=== PATIENT | female | born 1965 | race Caucasian/White ===

== ENCOUNTER → 2019-12-03 08:50 | Outpatient (BNVA) | payer MEDICAID, SELFPAY | PROVIDERS: Family Provider Family Medicine; PCP Family Medicine; Visit Provider Nurse Practitioner Psychiatric/Mental Health | DX: F33.2 Major depressive disorder, recurrent severe without psychotic features (principal); F41.1 Generalized anxiety disorder | CPT/HCPCS: 99213 ==

== ENCOUNTER → 2020-02-25 07:26 | Outpatient (BNVA) | payer MEDICAID, SELFPAY | PROVIDERS: Family Provider Family Medicine; PCP Family Medicine; Visit Provider Nurse Practitioner Psychiatric/Mental Health | DX: F33.2 Major depressive disorder, recurrent severe without psychotic features (principal); F41.1 Generalized anxiety disorder | CPT/HCPCS: 99213 ==

== ENCOUNTER → 2020-05-24 07:41 | Outpatient (BNVA) | payer MEDICAID, SELFPAY | PROVIDERS: Family Provider Family Medicine; PCP Family Medicine; Visit Provider Nurse Practitioner Psychiatric/Mental Health | DX: F33.2 Major depressive disorder, recurrent severe without psychotic features (principal); F41.1 Generalized anxiety disorder | CPT/HCPCS: 99213 ==

== ENCOUNTER → 2020-08-24 07:49 | Outpatient (BNVA) | payer MEDICAID, SELFPAY | PROVIDERS: Family Provider Family Medicine; PCP Family Medicine; Visit Provider Nurse Practitioner Psychiatric/Mental Health | DX: F33.2 Major depressive disorder, recurrent severe without psychotic features (principal); F41.1 Generalized anxiety disorder | CPT/HCPCS: 99213 ==

== ENCOUNTER → 2020-11-22 07:59 | Outpatient (BNVA) | payer MEDICAID, SELFPAY | PROVIDERS: Family Provider Family Medicine; PCP Family Medicine; Visit Provider Nurse Practitioner Psychiatric/Mental Health | DX: F33.2 Major depressive disorder, recurrent severe without psychotic features (principal); F41.1 Generalized anxiety disorder | CPT/HCPCS: 99213 ==

== ENCOUNTER → 2021-01-03 07:45 | Outpatient (BNVA) | payer MEDICAID, SELFPAY | PROVIDERS: Family Provider Family Medicine; PCP Family Medicine; Visit Provider Nurse Practitioner Psychiatric/Mental Health | DX: F33.2 Major depressive disorder, recurrent severe without psychotic features (principal); F41.1 Generalized anxiety disorder; Z79.899 Other long term (current) drug therapy | CPT/HCPCS: 99214 ==

== ENCOUNTER → 2021-02-15 08:36 | Outpatient (BNVA) | payer MEDICAID, SELFPAY | PROVIDERS: Family Provider Family Medicine; PCP Family Medicine; Visit Provider Nurse Practitioner Psychiatric/Mental Health | DX: F33.2 Major depressive disorder, recurrent severe without psychotic features (principal); F41.1 Generalized anxiety disorder; Z79.899 Other long term (current) drug therapy | CPT/HCPCS: 99214 ==

== ENCOUNTER → 2021-03-01 08:49 | Outpatient (BNVA) | payer MEDICAID, SELFPAY | PROVIDERS: Family Provider Family Medicine; PCP Family Medicine; Visit Provider Nurse Practitioner Psychiatric/Mental Health | DX: Z79.899 Other long term (current) drug therapy (principal) | CPT/HCPCS: 80061; 83036 ==

== ENCOUNTER → 2021-05-10 07:51 | Outpatient (BNVA) | payer MEDICAID, SELFPAY | PROVIDERS: Family Provider Family Medicine; PCP Family Medicine; Visit Provider Nurse Practitioner Psychiatric/Mental Health | DX: F33.2 Major depressive disorder, recurrent severe without psychotic features (principal); F41.1 Generalized anxiety disorder; Z79.899 Other long term (current) drug therapy | CPT/HCPCS: 99214 ==

== ENCOUNTER → 2021-08-02 07:32 | Outpatient (BNVA) | payer MEDICAID, SELFPAY | PROVIDERS: Family Provider Family Medicine; PCP Family Medicine; Visit Provider Nurse Practitioner Psychiatric/Mental Health | DX: F33.2 Major depressive disorder, recurrent severe without psychotic features (principal); F41.1 Generalized anxiety disorder; Z79.899 Other long term (current) drug therapy | CPT/HCPCS: 99214 ==

== ENCOUNTER → 2021-12-06 07:34 | Outpatient (BNVA) | payer MEDICAID, SELFPAY | PROVIDERS: Family Provider Family Medicine; PCP Family Medicine; Visit Provider Nurse Practitioner Psychiatric/Mental Health | DX: F33.2 Major depressive disorder, recurrent severe without psychotic features (principal); F41.1 Generalized anxiety disorder | CPT/HCPCS: 99214 ==

== ENCOUNTER → 2022-03-09 15:07 | Outpatient (BNVA) | payer MEDICAID, SELFPAY | PROVIDERS: Family Provider Family Medicine; PCP Family Medicine; Visit Provider Nurse Practitioner Psychiatric/Mental Health | DX: F33.2 Major depressive disorder, recurrent severe without psychotic features (principal); F41.1 Generalized anxiety disorder | CPT/HCPCS: 99214 ==

== ENCOUNTER → 2022-08-29 08:44 | Outpatient (BNVA) | payer MEDICAID, SELFPAY | PROVIDERS: Family Provider Family Medicine; PCP Family Medicine; Visit Provider Nurse Practitioner Psychiatric/Mental Health | DX: Z79.899 Other long term (current) drug therapy (principal) | CPT/HCPCS: 80053; 80061; 83036 ==

== ENCOUNTER → 2023-06-29 11:01 | Outpatient (BNVA) | payer MEDICAID, SELFPAY | PROVIDERS: PCP Family Medicine; Visit Provider Nurse Practitioner Psychiatric/Mental Health | DX: Z79.899 Other long term (current) drug therapy (principal); F50.81 Binge eating disorder; F33.2 Major depressive disorder, recurrent severe without psychotic features; F41.1 Generalized anxiety disorder | CPT/HCPCS: 80053; 80061; 83036 ==

== ENCOUNTER → 2023-07-05 13:07 | Outpatient (BNVA) | payer MEDICAID, SELFPAY | PROVIDERS: PCP Family Medicine; Visit Provider Internal Medicine Cardiovascular Disease | DX: Z79.899 Other long term (current) drug therapy (principal) | CPT/HCPCS: 93005 ==

== ENCOUNTER 2023-12-12 08:02 | Outpatient (CLI) | payer OTHER, SELFPAY ==
--- NOTE | 2023-12-12 08:05 | MM_ITS ---
WS: [id number] SCREENING DIGITAL TOMOSYNTHESIS MAMMOGRAM WITH CAD HISTORY: SCREENING COMPARISON: 10/25/2009 Bilateral CC and MLO with tomosynthesis views submitted. Synthetic mammography reviewed. Computer aid ed detection analyzed. Breast composition: There are scattered areas of fibroglandular density. No suspicious masses, microc alcifications or architectural distortion. Benign bilateral calcifications. IMPRESSION: MM/[place] [id number] BI-RADS: 2-Benign FOLLOW UP: 1 Year Follow-up
== END 2023-12-12 08:03 | disposition home or self-care (01) ==
LOC: RAD 08:03
PROVIDERS: PCP Family Medicine; Visit Provider Nurse Practitioner Family
DX: Z12.31 Encounter for screening mammogram for malignant neoplasm of breast (principal); R92.323 Mammographic fibroglandular density, bilateral breasts; R92.1 Mammographic calcification found on diagnostic imaging of breast
CPT/HCPCS: 77063; 77067

== ENCOUNTER 2023-12-19 08:30 | Day surgery (SDC) | payer OTHER, SELFPAY ==
[2023-12-19 08:50] VITALS: BP 151/106; PULSE 97; RESP 18; TEMP 36.1; O2SAT 98
[2023-12-19] MEDS: sodium chloride 0.9% 1,000 ML 30 ML IV (08:50)
--- NOTE | 2023-12-19 09:01 | P.ANESASSM_ITS ---
Pre-Anesthetic Assessment Height/Weight: Height 1.55 m Weight 82.554 kg Temp Pulse Resp BP Pulse Ox O2 Del Method 97.0 F L 97 18 151/106 98 Room Air 12/19/23 08:50 12/19/23 08:50 12/19/23 08:50 12/19/23 08:50 12/19/23 08:50 12/19/23 08:50 Preop Diagnosis: Screening colon Operation Date: 12/19/23 09:30 [place] Procedures p [address] colonoscopy G0121 screen colon a risk Z12.11(Not Applicable) - Baldemar Castro DO Familial anesthetic complications: None Was Beta Rishabh taken within 24 hours: N/A Was Clonidine taken within 24 hours: N/A Last intake: Intake Last Liquid Date 12/18/23 Last Liquid Time 20:00 Last Solid Date 12/17/23 Last Solid Time 19:00 Social No alcohol and No tobacco Exam alert, oriented x 3, clear to auscultation bilaterally and regular rate & rhythm Airway Submandibular: within normal limits Cervical ROM: within normal limits Mallampati: Class II Dentition: other History/ROS No significant history except as noted Pulmonary None reported CV/HEM Hypertension None reported Hepatic None reported GI None reported Metabolic None reported Musc/skel None reported Neuropsych Anxiety and Depression Anesthetic Plan ASA status: 2 Anesthesia: Anesthesia Evaluation Risk of > 500 ml blood loss (7ml/kg in children): No Medications/Allergies Home Medications Medication Instructions Recorded Confirmed Last Taken Type melatonin 3 mg capsule 3 mg PO .QHS PRN sleep #90 caps 03/07/22 12/17/23 12/18/23 Rx lisinopril 10 mg tablet 10 mg PO DAILY 08/24/22 12/17/23 12/18/23 History aripiprazole 2 mg tablet (Abilify) 2 mg PO .evening #90 tabs 06/29/23 12/17/23 12/18/23 Rx venlafaxine 150 mg 150 mg PO .12 pm #90 caps 07/27/23 12/17/23 12/18/23 Rx capsule,extended release 24 hr (Effexor XR) venlafaxine 75 mg capsule,extended 75 mg PO .12 pm #90 caps 07/27/23 12/17/23 12/18/23 Rx release 24 hr (Effexor XR) Allergies Allergy/AdvReac Type Severity Reaction Status Date / Time metronidazole [From Flagyl] Allergy Mild hives Verified 11/27/23 12:16 Current Medications Generic Name Dose Route Start Last Admin Trade Name Yaritza PRN Reason Stop Dose Admin Sodium Chloride 1,000 mls @ 30 mls/hr 12/19/23 08:45 12/19/23 08:50 Sodium Chloride 0.9% IV 12/20/23 08:44 30 mls/hr .Q24H ABDOUL Administration PFSH Anesthesia Medical History Binge-eating disorder, severe Psychiatric care Generalized anxiety disorder Major depressive disorder, recurrent severe without psychotic features Surgical History History of bilateral tubal ligation (~1999) [facility] with Dr. Roberts Family History Mother , Age 62 Hypertension Diabetes Father , Age 52 from [place] Diabetes CAD (coronary artery disease) Social History Smoking and tobacco/nicotine status: never used tobacco/nicotine Alcohol intake: never Substance/Drug Use: never Data Anesthesia Cardiac Studies: No Data to Display
--- NOTE | 2023-12-19 09:12 | W.PM.OPSUD ---
Surgery/Procedure H&P Update DATE OF PROCEDURE: December 19, 2023 DATE H&P PERFORMED: 11/27/23 H&P UPDATE INFORMATION: I have reviewed H&P completed within last 30 days, I have examined patient prior to procedure and No changes to prior documentation PREOP DIAGNOSIS: Screening colon PLANNED PROCEDURE: Operation Date: 12/19/23 09:30 Pro[place] Procedures p 89640 colonoscopy G0121 screen colon a risk Z12.11(Not Applicable) - Baldemar Castro, DO
[2023-12-19 09:33] VITALS: BP 128/87; PULSE 88; RESP 18; TEMP 36.3; O2SAT 98
[2023-12-19 09:46] VITALS: BP 128/81; PULSE 82; RESP 16; O2SAT 96
--- NOTE | 2023-12-19 09:50 | ANE.PACU2 ---
Inpatient post-anesthesia follow up: Airway intact: Yes Vital signs: Temperature 97.3 F Pulse Rate 82 Respiratory Rate 16 Blood Pressure 128/81 Pulse Oximetry 96 Oxygen Delivery Me thod Room Air Oxygen Flow Rate Fraction of Inspir ed Oxygen Hydration adequate: Yes Nausea and vomiting: No Pain level: 1 Mental status: Baseline
== END 2023-12-19 09:55 | disposition home or self-care (01) ==
PROVIDERS: PCP Family Medicine; Visit Provider Surgery
PROC: 0DJD8ZZ Inspection of Lower Intestinal Tract, Via Natural or Artificial Opening Endoscopic (ICD-10-PCS; CPT 45378; principal; 2023-12-19 09:30)
DX: Z12.11 Encounter for screening for malignant neoplasm of colon (principal); I10 Essential (primary) hypertension
CPT/HCPCS: 45378; J2704; J7030

== ENCOUNTER → 2024-03-06 10:23 | Outpatient (BNVA) | payer OTHER, SELFPAY | PROVIDERS: PCP Family Medicine; Visit Provider Nurse Practitioner Women's Health | DX: N95.0 Postmenopausal bleeding (principal); D25.9 Leiomyoma of uterus, unspecified | CPT/HCPCS: 76830 ==

== ENCOUNTER 2024-03-10 10:18 | Outpatient (CLI) | payer OTHER, SELFPAY ==
--- NOTE | 2024-03-10 10:23 | XR_ITS ---
WS: [id number] XR knee LT 3V* [id number] REASON FOR EXAM: L KNEE PAIN FINDINGS: No fracture or focal bone lesion. Mild narrowing of the medial and lateral joint space with mild subchondral sclerosis. Patellofemoral joint space intact and relatively well preserved. No soft tissue abnormality. XR/XR knee LT 3V* [id number] IMPRESSION: Mild osteoarthritis of the left knee as above.
== END 2024-03-10 10:19 | disposition home or self-care (01) ==
LOC: RAD 10:18
PROVIDERS: PCP Family Medicine; Visit Provider Family Medicine
DX: M25.562 Pain in left knee (principal); M17.12 Unilateral primary osteoarthritis, left knee
CPT/HCPCS: 73562

== ENCOUNTER 2024-04-01 10:40 | Emergency (ER) | payer OTHER, SELFPAY ==
--- NOTE | 2024-04-01 10:45 | XRR_ITS ---
PROCEDURE INFORMATION: Exam: XR Left Knee Exam date and time: 04/01/2024 11:22 AM Age: 58 years old Clinical indication: Patient HX: PT presents with left knee pain. Patient states she has been dx with arthritis by pcp. Patient has follow up on 04/10 and has appointments with ortho in April. Patient states she cannot sleep due to pain. Patient states pain medciations given do not work. Patient ambulated to triage. Patent airway, unlabored respirations, and appropriate color. TECHNIQUE: Imaging protocol: Radiologic exam of the left knee. Views: 3 views. COMPARISON: CR XR knee LT 3V* [id number] 03/10/2024 10:37 AM FINDINGS: Bones/joints: Normal. Soft tissues: Normal. XR/XR knee LT 3V* [id number] IMPRESSION: No acute findings.
[2024-04-01 10:54] VITALS: BP 141/81; PULSE 79; RESP 16; TEMP 36.6; O2SAT 98; BMI 34.2
[2024-04-01 10:56] VITALS: BP 141/81; PULSE 79; RESP 16; O2SAT 98
--- NOTE | 2024-04-01 13:07 | ED_ITS ---
HPI - Extremity Problem General: Chief complaint: Extremity Problem,Nontraumatic Stated complaint: pain in left knee Time Seen by Provider: 04/01/24 12:24 Source: patient Mode of arrival: ambulatory Limitations: no limitations History of Present Illness: Patient presents to the ER for continued left knee pain. She denies any specific injury but has had issues with her knee for a while. 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 She has been evaluated already and sees ortho in April and is supposed to have a knee injection soon but has been trying topical rubs and a prescription of diclofenac without resolution of her pain. Pain is in the medial knee. She has not had lower leg swelling or knee redness/fever. Review of Systems General: Reports: 10 or more systems reviewed and unremarkable except in HPI and below PFSH ED PFSH: Medical History Hypertension No pertinent past medical history neghx: dm,thyroid,dvt/pe PCP: Dr. Cabrera Postmenopausal bleeding Binge-eating disorder, severe Psychiatric care Generalized anxiety disorder Major depressive disorder, recurrent severe without psychotic features Surgical History History of bilateral tubal ligation (~1999) [facility] with Dr. Roberts Family History Mother , Age 62 Hypertension Diabetes Father , Age 52 from [place] Diabetes CAD (coronary artery disease) Heart disease Denies family history of Colon cancer Ovarian cancer Prostate cancer Hyperlipidemia Breast cancer Uterine cancer Thyroid disease Stroke Physical Exam Const: COMMON NORMALS: no acute distress, patient oriented x3 and alert HENMT: COMMON NORMALS: normocephalic, atraumatic and hearing grossly normal bilaterally HEAD & SCALP: normocephalic and atraumatic Eye: COMMON NORMALS: Equal, round and reactive pupils present, EOMs intact bilaterally and conjunctivae normal CONJUNCTIVA: Yes conjunctivae normal PUPIL: Yes Equal, round and reactive pupils present Neck/C-Spine: COMMON NORMALS: full ROM and no JVD Lymph: LYMPHATIC: no lymphadenopathy noted Resp: COMMON NORMALS: normal respiratory effort, No retractions and No use of accessory muscles Cardio: COMMON NORMALS: no JVD and regular rate RATE: regular rate Extremity: NARRATIVE EXTREMITY EXAM: Full flexion and extention of the left knee. non tender to the patella, suprapatellar region, popliteal region or calf. Point tenderness to the medial tibial plateau region. Neuro: COMMON NORMALS: patient oriented x3 SENSORIUM/ORIENTATION: Yes alert Psych: COMMON NORMALS: mental status grossly normal, Normal thought process present, cooperative and normal affect THOUGHT PROCESS: Normal thought process present Skin: COMMON NORMALS: no rashes or lesions noted and turgor normal GENERAL SKIN EXAM: no rashes or lesions noted and turgor normal Course Vital Signs: Vital signs: Vital Signs Temperature 97.8 F 04/01/24 10:54 Pulse Rate 76 04/01/24 13:29 Respiratory Rate 18 04/01/24 13:29 Blood Pressure 141/81 04/01/24 10:56 Pulse Oximetry 99 04/01/24 13:29 Oxygen Delivery Me thod Room Air 04/01/24 10:56 MDM - Extremity (Nontraumatic) Medical Decision Making Patient has point tenderness on her exam consistent with Pes Anserinus. XR shows no abnormalities. We discussed this as a tendonitis/soft tissue pain vs an internal joint pain. Would still recommend following up with orthopedics for her knee and getting the injection due to reports of osteoarthritis in her knee (previously diagnosed). Will treat with antiinflammatories for her tendonitis and recommend RICE therapy. She would prefer not to have a brace as pressure on the area causes her to have pain. Differential Diagnosis Unlikely herpes zoster, gout, cellulitis, lower extremity edema or deep vein thrombosis of lower extremity Lab Data Radiology Impressions Knee X-Ray 04/01/24 10:45 IMPRESSION: No acute findings. All radiology interpretation(s) finalized by discharge Discharge Plan Discharge Patient Disposition: Home Clinical Impression: Pes anserinus tendinitis of left lower extremity Condition: Stable Prescriptions: New methylprednisolone 4 mg tablets,dose pack See Rx Instructions PO .COMPLEX Qty: 21 0RF Rx Instructions: orally per package directions tizanidine 4 mg capsule 4 mg PO Q8H PRN (Reason: muscle spasticity) Qty: 20 0RF No Action lisinopril 10 mg tablet 10 mg PO DAILY aripiprazole [Abilify] 2 mg tablet 2 mg PO .7 pm Qty: 90 2RF Rx Instructions: Take one tablet at 7 pm diclofenac sodium 75 mg tablet,delayed release (DR/EC) 75 mg PO BID melatonin 3 mg capsule 3 mg PO .QHS PRN (Reason: sleep) Qty: 90 1RF Rx Instructions: Take one tablet at bedtime as needed for sleep venlafaxine [Effexor XR] 75 mg capsule,extended release 24hr 75 mg PO .12 pm Qty: 90 2RF Rx Instructions: Take one capsule at noon with 150 mg capsule, total dose 225 mg venlafaxine [Effexor XR] 150 mg capsule,extended release 24hr 150 mg PO .12 pm Qty: 90 2RF Rx Instructions: Take one capsule at noon estradiol 0.5 mg tablet 0.5 mg PO DAILY 30 Days Qty: 30 0RF progesterone micronized [Prometrium] 100 mg capsule 100 mg PO BEDTIME Qty: 30 0RF Rx Instructions: take in addition with estradiol Discharge Orders: Discharge ED (Routine); Ordered 04/01/24 Ordered By: Rachael Lackey Referrals: Evelio Cabrera MD [Primary Care Provider] - Discharge Diet: Usual diet Discharge Activity: Increase activity as tolerated Patient Instructions: Tendinitis (ED) Activity Restrictions/Additional Instructions: After hearing the description of your pain and the location, I believe you are suffering from pes anserinus. This is a specific tendinitis of the knee which takes the medial thigh muscles and brings them together with connective tissue which attaches to the medial side of your tibia. This correlates with the point specific tenderness you have. I looked in your chart and it appears you are on diclofenac as an anti-inflammatory. I encourage you to continue taking this medication as it does work very well for knee issues. I am also adding some oral steroids as well as a muscle relaxer to help, given the type of pain you are experiencing. I still encourage you to see the integrated specialist and would encourage you to receive a cortisone shot in your knee as it does appear you suffer from an underlying knee arthritis as well. I encourage you to put ice on that medial knee for 15 to 20 minutes, every couple of hours to help with pain and swelling as well. Unfortunately, repetitive motion can often trigger worsening of the symptoms such as bending and squatting up and down regularly. For that reason would like to be couple days off work to allow you to rest. Stand Alone Forms: Work/School Release Coding Level of Care Code ED [employer] for Joao Gonzalez
[2024-04-01 13:29] VITALS: PULSE 76; RESP 18; O2SAT 99
== END 2024-04-01 13:30 | disposition home or self-care (01) ==
PROVIDERS: Emergency Provider Physician Assistant; PCP Family Medicine
DX: M76.892 Other specified enthesopathies of left lower limb, excluding foot (principal); I10 Essential (primary) hypertension; Z79.899 Other long term (current) drug therapy
CPT/HCPCS: 73562; 99283

== ENCOUNTER → 2024-04-08 11:45 | Outpatient (BNVA) | payer OTHER, SELFPAY | PROVIDERS: PCP Family Medicine; Visit Provider Nurse Practitioner Women's Health | DX: N95.0 Postmenopausal bleeding (principal) | CPT/HCPCS: 88305 ==

== ENCOUNTER → 2024-05-01 09:10 | Outpatient (BNVA) | payer OTHER, SELFPAY | PROVIDERS: PCP Family Medicine; Referring Provider Family Medicine; Visit Provider Student in an Organized Health Care Education/Training Program | DX: M25.562 Pain in left knee (principal); M17.12 Unilateral primary osteoarthritis, left knee | CPT/HCPCS: 73560; 73565 ==

== ENCOUNTER 2024-05-01 10:57 | Outpatient (CLI) | payer OTHER, SELFPAY | END 2024-05-01 10:58 | disposition home or self-care (01) | LOC: SPT 10:58 | PROVIDERS: PCP Family Medicine; Visit Provider Student in an Organized Health Care Education/Training Program | DX: Z46.89 Encounter for fitting and adjustment of other specified devices (principal); M17.12 Unilateral primary osteoarthritis, left knee | CPT/HCPCS: 97760; L1851 ==

== ENCOUNTER 2024-05-12 15:09 | Emergency (ER) | payer OTHER, SELFPAY ==
[2024-05-12 15:51] LABS: Basophils # 0.1 10^3/uL (0.0-0.1); Basophils % 0.6 %; Eosinophils # 0.1 10^3/uL (0.0-0.8); Eosinophils % 0.8 %; Hematocrit 41.6 % (36-47); Lymphocytes # 3.3 10^3/uL (0.8-4.8); Lymphocytes % 27.5 %; Mean Corpuscular HGB Conc 32.5 g/dL (30-55); Mean Corpuscular Hemoglobin 30.5 pg (27-33); Mean Corpuscular Volume 94.1 fl (85-98); Mean Platelet Volume 10.1 fL (7.4-10.4); Monocytes # 0.6 10^3/uL (0.2-0.9); Monocytes % 5.2 %; Neutrophils % 65.5 %; Nucleated Red Blood Cells % 0 %; Platelet Count 278 10^3/cmm (157-399); Red Blood Count 4.42 10^6/uL (3.85-5.65); Red Cell Distribution Width 12.5 % (12.1-15.1); White Blood Count 11.91 10^3/uL (3.29-11.43)
[2024-05-12 15:52] VITALS: BP 101/69; PULSE 83; RESP 16; TEMP 36.7; O2SAT 99
[2024-05-12 16:07] LABS: Alanine Aminotransferase 16 U/L (0-33); Albumin Level 4.4 g/dL (3.5-5.2); Alkaline Phosphatase 82 U/L (35-105); Aspartate Amino Transferase 16 U/L (0-32); Blood Urea Nitrogen 18 mg/dL (6-20); Calcium 9.1 mg/dL (8.5-10.5); Carbon Dioxide 25 mmol/L (22-29); Chloride 101 mmol/L (98-107); Creatinine Clr Calc Pharmacy 72.2479; Globulin 2.6 g/dL (1.3-4.6); Glomerular Filtration Rate 73.7 mL/min (90-130); Glucose 93 mg/dL (65-115); Osmolality Calculated 286 mOsm/kg (285-295); Sodium 137 mmol/L (136-145); Total Bilirubin 0.2 mg/dL (0.15-1.2)
[2024-05-12 16:21] LABS: Anion Gap 15.1 (5-19); Potassium 4.1 mmol/L (3.5-5.1)
[2024-05-12 16:49] LABS: Add Urine Microscopic? YES; Bilirubin Urine Neg (Negative); Blood Urine 3+ (Negative); Glucose Urine UA Norm (Normal); Ketones Urine 1+ (Negative); Leukocyte Esterase Urine Negative (Negative); Nitrate Urine Negative (Negative); Protein Urine Neg (Negative); Specific Gravity, Urine 1.015 (1.005-1.030); Urine Appearance Slightly Cloudy (CLEAR); Urine Color Yellow (Yellow); Urobilinogen Urine Norm (Negative); pH Urine 8 (5-7)
[2024-05-12 16:50] LABS: Add Urine Culture? Yes; Bacteria Urine TRACE /hpf; RBC Urine TOO NUMEROUS TO CNT /hpf (0-2); Squamous Epithelial Cell Urine 0-4 /hpf (0-5)
--- NOTE | 2024-05-12 18:18 | W.ED.FEMALGU ---
HPI - Female Genitourinary General: Chief complaint: Urogenital-Female Stated complaint: blood in urine, abd pain Time Seen by Provider: 05/12/24 17:57 History of Present Illness: 58-year-old female who presents emergency room with vaginal bleeding. She is recently followed up in gynecology clinic and had an ultrasound that showed a thickened endometrium. She started having some bleeding yesterday and today and was under the understanding that she should go to the emergency room if she started bleeding. Bleeding has not been particularly heavy. She had no pain. No dizziness. No lightheadedness. No shortness of breath. No abdominal pain. Review of Systems Narrative: Constitutional symptoms: Negative except as documented in HPI. Skin symptoms: Negative except as documented in HPI. Eye symptoms: Negative except as documented in HPI. ENMT symptoms: Negative except as documented in HPI. Respiratory symptoms: Negative except as documented in HPI. Cardiovascular symptoms: Negative except as documented in HPI. Gastrointestinal symptoms: Negative except as documented in HPI. Genitourinary symptoms: Negative except as documented in HPI. Musculoskeletal symptoms: Negative except as documented in HPI. Neurologic symptoms: Negative except as documented in HPI. Psychiatric symptoms: Negative except as documented in HPI. Endocrine symptoms: Negative except as documented in HPI. PFSH ED PFSH: Medical History Hypertension No pertinent past medical history neghx: dm,thyroid,dvt/pe PCP: Dr. Cabrera Postmenopausal bleeding (~2019) Failed to follow-up for evaluation Binge-eating disorder, severe Psychiatric care Generalized anxiety disorder Major depressive disorder, recurrent severe without psychotic features Surgical History History of bilateral tubal ligation (~1999) [facility] with Dr. Roberts Family History Mother , Age 62 Hypertension Diabetes Father , Age 52 from [place] Diabetes CAD (coronary artery disease) Heart disease Denies family history of Colon cancer Ovarian cancer Prostate cancer Hyperlipidemia Breast cancer Uterine cancer Thyroid disease Stroke Social History (Updated 05/01/24 @ 09:19 by Hollie Delgado LPN) Smoking and tobacco/nicotine status: never used tobacco/nicotine Second hand smoke exposure: No Alcohol intake: never Physical Exam Narrative: EXAM NARRATIVE: General: Alert, no acute distress. Skin: warm and dry Head: Normocephalic Neck: Trachea midline Eye: Extraocular movements are intact. Ears, nose, mouth and throat: Oral mucosa moist Respiratory: Respirations are non-labored Musculoskeletal: Normal ROM Neurological: Alert and oriented, No focal neurological deficit observed. Psychiatric: Cooperative, appropriate mood & affect. Course Vital Signs: Vital signs: Vital Signs Temperature 98.1 F 05/12/24 15:52 Pulse Rate 83 05/12/24 15:52 Respiratory Rate 16 05/12/24 15:52 Blood Pressure 101/69 05/12/24 15:52 Pulse Oximetry 99 05/12/24 15:52 Oxygen Delivery Me thod Room Air 05/12/24 15:52 MDM - Female Medical Decision Making Medical decision making: Differential diagnosis including but not limited to and based on the above HPI, review of systems and physical exam: Basic lab work to rule out anemia etc. Orders placed to evaluate differential diagnosis based on the above differential, HPI and physical exam Lab Review: Laboratory results were reviewed and interpreted by myself the emergency room physician. Lab work is fairly unremarkable. Mild leukocytosis with a white count of 11.9. Hemoglobin is 13.5. No renal failure. There is blood in her urine but she is having vaginal bleeding so this is expected. No white cells in her urine. No signs of infection. I reviewed the patient's medical record. Consultation: I spoke with ANA Blanco. Apparently there was a misunderstanding on whether she should have gone to the emergency room. She was aware that patient had called but did not get the message until later this afternoon and so clinic likely had not yet gotten back in touch with the patient. She recommends stopping hormone therapy and clinic will call the patient. Assessment and plan: Abnormal uterine bleeding - Discharged home - Discussed plan with patient. Answered any questions. - Evaluation and treatment of this problem were appropriate in the emergency setting. Lab Data 05/12/24 15:42 05/12/24 15:42 Laboratory Results WBC 11.91 10^3/uL (3.29-11.43) H 05/12/24 15:42 RBC 4.42 10^6/uL (3.85-5.65) 05/12/24 15:42 Hgb 13.50 g/dL (11.27-16.99) 05/12/24 15:42 Hct 41.6 % (36-47) 05/12/24 15:42 MCV 94.1 fl (85-98) 05/12/24 15:42 MCH 30.5 pg (27-33) 05/12/24 15:42 MCHC 32.5 g/dL (30-55) 05/12/24 15:42 RDW 12.5 % (12.1-15.1) 05/12/24 15:42 Plt Count 278 10^3/cmm (157-399) 05/12/24 15:42 MPV 10.1 fL (7.4-10.4) 05/12/24 15:42 Neut % (Auto) 65.5 % 05/12/24 15:42 Lymph % (Auto) 27.5 % 05/12/24 15:42 Crawford % (Auto) 5.2 % 05/12/24 15:42 Eos % (Auto) 0.8 % 05/12/24 15:42 Baso % (Auto) 0.6 % 05/12/24 15:42 Neut # (Auto) 7.80 10^3/uL (1.8-7.7) H 05/12/24 15:42 Lymph # (Auto) 3.3 10^3/uL (0.8-4.8) 05/12/24 15:42 Crawford # (Auto) 0.6 10^3/uL (0.2-0.9) 05/12/24 15:42 Eos # (Auto) 0.1 10^3/uL (0.0-0.8) 05/12/24 15:42 Baso # (Auto) 0.1 10^3/uL (0.0-0.1) 05/12/24 15:42 Nucleated RBC % (auto) 0 % 05/12/24 15:42 Nucleated RBCs # 0.0 /100WBC 05/12/24 15:42 Sodium 137 mmol/L (136-145) 05/12/24 15:42 Potassium 4.1 mmol/L (3.5-5.1) 05/12/24 15:42 Chloride 101 mmol/L (98-107) 05/12/24 15:42 Carbon Dioxide 25 mmol/L (22-29) 05/12/24 15:42 Anion Gap 15.1 (5-19) 05/12/24 15:42 BUN 18 mg/dL (6-20) 05/12/24 15:42 Creatinine 0.8 mg/dL (0.5-0.9) 05/12/24 15:42 GFR Calculation 73.7 mL/min (90-130) L 05/12/24 15:42 Glucose 93 mg/dL (65-115) 05/12/24 15:42 Calculated Osmolality 286 mOsm/kg (285-295) 05/12/24 15:42 Calcium 9.1 mg/dL (8.5-10.5) 05/12/24 15:42 Total Bilirubin 0.2 mg/dL (0.15-1.2) 05/12/24 15:42 AST 16 U/L (0-32) 05/12/24 15:42 ALT 16 U/L (0-33) 05/12/24 15:42 Alkaline Phosphatase 82 U/L (35-105) 05/12/24 15:42 Total Protein 7.0 g/dL (6.6-8.7) 05/12/24 15:42 Albumin 4.4 g/dL (3.5-5.2) 05/12/24 15:42 Globulin 2.6 g/dL (1.3-4.6) 05/12/24 15:42 Urine Color Yellow (Yellow) 05/12/24 14:04 Urine Appearance Slightly cloudy (CLEAR) 05/12/24 14:04 Urine pH 8 (5-7) H 05/12/24 14:04 Ur Specific [place] 1.015 (1.005-1.030) 05/12/24 14:04 Urine Protein Neg (Negative) 05/12/24 14:04 Urine Glucose (UA) Norm (Normal) 05/12/24 14:04 Urine Ketones 1+ (Negative) H 05/12/24 14:04 Urine Blood 3+ (Negative) H 05/12/24 14:04 Urine Nitrate Negative (Negative) 05/12/24 14:04 Urine Bilirubin Neg (Negative) 05/12/24 14:04 Urine Urobilinogen Norm mg/dL (Negative) 05/12/24 14:04 Ur Leukocyte Esterase Negative (Negative) 05/12/24 14:04 Urine RBC Too numerous to cnt /hpf (0-2) H 05/12/24 14:04 Urine WBC None /hpf (0-5) 05/12/24 14:04 Ur Squamous Epith Cells 0-4 /hpf (0-5) H 05/12/24 14:04 Amorphous Sediment Not Reportable 05/12/24 14:04 Urine Bacteria Trace /hpf (NONE) 05/12/24 14:04 No radiology studies performed this visit Discharge Plan Discharge Patient Disposition: Home Clinical Impression: Abnormal vaginal bleeding Condition: Stable Prescriptions: No Action lisinopril 10 mg tablet 10 mg PO DAILY aripiprazole [Abilify] 2 mg tablet 2 mg PO .7 pm Qty: 90 2RF Rx Instructions: Take one tablet at 7 pm (DME) left knee human services 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 brace See Rx Instructions .Route .MEDSUPPLY Qty: 1 0RF Rx Instructions: As directed diclofenac sodium 75 mg tablet,delayed release (DR/EC) 75 mg PO BID estradiol 0.5 mg tablet 0.5 mg PO DAILY Qty: 90 3RF Rx Instructions: take in conjunction with prometrium progesterone micronized [Prometrium] 100 mg capsule 100 mg PO BEDTIME Qty: 90 3RF Rx Instructions: take in addition with estradiol melatonin 3 mg capsule 3 mg PO .QHS PRN (Reason: sleep) Qty: 90 1RF Rx Instructions: Take one tablet at bedtime as needed for sleep venlafaxine [Effexor XR] 75 mg capsule,extended release 24hr 75 mg PO .12 pm Qty: 90 2RF Rx Instructions: Take one capsule at noon with 150 mg capsule, total dose 225 mg venlafaxine [Effexor XR] 150 mg capsule,extended release 24hr 150 mg PO .12 pm Qty: 90 2RF Rx Instructions: Take one capsule at noon tizanidine 4 mg capsule 4 mg PO Q8H PRN (Reason: muscle spasticity) Qty: 20 0RF Discharge Orders: Discharge ED (Routine); Ordered 05/12/24 Ordered By: Ghada Diaz Referrals: Caroline Santamaria DO [Primary Care Provider] - Discharge Diet: Usual diet Discharge Activity: Resume usual activity Patient Instructions: Abnormal (Dysfunctional) Uterine Bleeding (ED) Activity Restrictions/Additional Instructions: Stop taking the hormone therapy that you are prescribed for now. Your complaint evaluation officer will be in touch with you in the next couple of days for referral to a gynecological surgeon. Thank you for choosing [facility] for your healthcare needs today. Please realize this is an emergency room and that we are providing you with a medical screening exam and this may not be complete and all inclusive of all the testing and or work up that you may need to determine your ailment or severity of your illness. You have been screened and evaluated and felt safe for discharge. Health conditions do change or evolve sometimes and as such it is important that you follow up with your Primary Doctor to be re checked, 3-5 days is a general good time frame for follow up. You are always welcome to return to the ED for re assessment if your symptoms are worsening or you have new concerns Coding Level of Care Code ED Back Order Clerk for Joao Gonzalez
== END 2024-05-12 18:57 | disposition home or self-care (01) ==
PROVIDERS: Physician Assistant; Emergency Provider Emergency Medicine; PCP Family Medicine
DX: N93.9 Abnormal uterine and vaginal bleeding, unspecified (principal); I10 Essential (primary) hypertension
CPT/HCPCS: 36415; 80053; 81001; 85025; 87086; 99283

== ENCOUNTER → 2024-06-18 08:30 | Outpatient (BNVA) | payer OTHER, SELFPAY | PROVIDERS: PCP Family Medicine; Visit Provider Nurse Practitioner Psychiatric/Mental Health | DX: Z79.899 Other long term (current) drug therapy (principal) | CPT/HCPCS: 80053; 80061; 83036 ==

== ENCOUNTER → 2024-08-11 15:17 | Outpatient (BNVA) | payer OTHER, SELFPAY | PROVIDERS: PCP Family Medicine; Visit Provider Nurse Practitioner Women's Health | DX: N95.0 Postmenopausal bleeding (principal); D25.1 Intramural leiomyoma of uterus; R93.89 Abnormal findings on diagnostic imaging of other specified body structures | CPT/HCPCS: 76830 ==

== ENCOUNTER → 2024-09-02 08:21 | Outpatient (BNVA) | payer OTHER, SELFPAY | PROVIDERS: PCP Family Medicine; Visit Provider Obstetrics & Gynecology | DX: N95.0 Postmenopausal bleeding (principal); R93.89 Abnormal findings on diagnostic imaging of other specified body structures | CPT/HCPCS: 88305 ==

== ENCOUNTER 2024-12-01 11:20 | Day surgery (SDC) | payer OTHER, SELFPAY ==
[2024-11-24 10:56] LABS: Basophils # 0.1 10^3/uL (0.0-0.1); Basophils % 0.7 %; Eosinophils # 0.2 10^3/uL (0.0-0.8); Eosinophils % 1.6 %; Hematocrit 44.5 % (36-47); Lymphocytes # 2.5 10^3/uL (0.8-4.8); Lymphocytes % 25.1 %; Mean Corpuscular HGB Conc 32.6 g/dL (30-55); Mean Corpuscular Hemoglobin 29.9 pg (27-33); Mean Corpuscular Volume 91.8 fl (85-98); Monocytes # 0.5 10^3/uL (0.2-0.9); Monocytes % 5.1 %; Neutrophils % 67.2 %; Nucleated Red Blood Cells % 0 %; Platelet Count 294 10^3/cmm (157-399); Red Blood Count 4.85 10^6/uL (3.85-5.65); Red Cell Distribution Width 12.5 % (12.1-15.1); White Blood Count 9.82 10^3/uL (3.29-11.43)
[2024-11-24 10:58] LABS: Bilirubin Urine Negative (Negative); Blood Urine Negative (Negative); Glucose Urine UA Negative (Normal); Ketones Urine Negative (Negative); Leukocyte Esterase Urine Negative (Negative); Nitrate Urine Negative (Negative); Protein Urine Negative (Negative); Specific Gravity, Urine 1.016 (1.005-1.030); Urine Appearance Clear (CLEAR); Urine Color Yellow (Yellow); Urobilinogen Urine 0.2 mg/dL (Negative); pH Urine 5.5 (5-7)
[2024-11-24 11:03] LABS: Add Urine Microscopic? YES; Bacteria Urine 1+ /hpf; Hyaline Casts Urine 0-4 /lpf; RBC Urine 0-2 /hpf (0-2); WBC Urine 0-5 /hpf (0-5)
[2024-11-24 11:15] LABS: Alanine Aminotransferase 24 U/L (0-33); Albumin Level 4.6 g/dL (3.5-5.2); Alkaline Phosphatase 96 U/L (35-105); Anion Gap 15.4 (5-19); Aspartate Amino Transferase 26 U/L (0-32); Blood Urea Nitrogen 10 mg/dL (6-20); Calcium 9.7 mg/dL (8.5-10.5); Carbon Dioxide 25 mmol/L (22-29); Chloride 103 mmol/L (98-107); Globulin 3.3 g/dL (1.3-4.6); Glomerular Filtration Rate 126.3 mL/min (90-130); Glucose 151 mg/dL (65-115); Osmolality Calculated 290 mOsm/kg (285-295); Potassium 4.4 mmol/L (3.5-5.1); Sodium 139 mmol/L (136-145); Total Bilirubin 0.2 mg/dL (0.15-1.2); Total Protein 7.9 g/dL (6.6-8.7)
--- NOTE | 2024-11-24 11:47 | ANES.PREANE2 ---
Pre-Anesthetic Assessment Height/Weight: Height 5 ft 1 in Preop Diagnosis: postmenopausal bleeding Operation Date: 12/01/24 13:25 Proposed Procedures p Hysteroscopy w/ Myosure 02832, 96179, N95.0(Not Applicable) - Timothy Johnson MD s Dilation And Curettage (D&C)(Not Applicable) - Timothy Johnson MD Was Beta Rishabh taken within 24 hours: N/A Was Clonidine taken within 24 hours: N/A Social No alcohol and No tobacco Exam alert, oriented x 3, clear to auscultation bilaterally and regular rate & rhythm Airway Submandibular: within normal limits Cervical ROM: within normal limits Mallampati: Class II Anesthetic Plan ASA status: 2 Anesthesia: General Other: No prior issues with anesthesia Plan to be n.p.o. at midnight prior to surgery History of hypertension on lisinopril Denies any pulmonary issues Labs reviewed 11/24/2024 and acceptable for procedure METs greater than 4 Plan for general anesthesia Medications/Allergies Home Medications Medication Instructions Recorded Confirmed Last Taken Type left knee mine geologist brace #1 ea 05/01/24 11/24/24 Unknown Rx venlafaxine 150 mg 150 mg PO .12 pm #90 caps 09/16/24 11/24/24 11/24/24 Rx capsule,extended release 24 hr (Effexor XR) venlafaxine 75 mg capsule,extended 75 mg PO .12 pm #90 caps 09/16/24 11/24/24 11/24/24 Rx release 24 hr (Effexor XR) lisinopril 40 mg tablet 40 mg PO DAILY 10/24/24 11/24/24 11/24/24 History Allergies Allergy/AdvReac Type Severity Reaction Status Date / Time metronidazole [From Flagyl] Allergy Mild hives Verified 11/24/24 08:45 [facility] Anesthesia Medical History Postmenopausal bleeding (~2019) Failed to follow-up for evaluation Hypertension No pertinent past medical history neghx: dm,thyroid,dvt/pe PCP: Dr. Cabrera Binge-eating disorder, severe Psychiatric care Generalized anxiety disorder Major depressive disorder, recurrent severe without psychotic features Surgical History History of bilateral tubal ligation (~1999) [facility] with Dr. Roberts Family History Mother , Age 62 Hypertension Diabetes Father , Age 52 from [place] Diabetes CAD (coronary artery disease) Heart disease Denies family history of Colon cancer Ovarian cancer Prostate cancer Hyperlipidemia Breast cancer Uterine cancer Thyroid disease Stroke Social History Smoking and tobacco/nicotine status: never used tobacco/nicotine Second hand smoke exposure: No Alcohol intake: never Data Anesthesia 11/24/24 10:45 11/24/24 10:45 Short CBC 11/24/24 Range/Units 10:45 WBC 9.82 (3.29-11.43) 10^3/uL Hgb 14.50 (11.27-16.99) g/dL Hct 44.5 (36-47) % MCV 91.8 (85-98) fl Plt Count 294 (157-399) 10^3/cmm Neut % (Auto) 67.2 % Neut # (Auto) 6.60 (1.8-7.7) 10^3/uL BMP 11/24/24 10:45 Sodium 139 Potassium 4.4 Chloride 103 Carbon Dioxide 25 BUN 10 Creatinine 0.5 Glucose 151 H Calcium 9.7 Liver Function 11/24/24 Range/Units 10:45 Total Bilirubin 0.2 (0.15-1.2) mg/dL AST 26 (0-32) U/L ALT 24 (0-33) U/L Alkaline Phosphatase 96 (35-105) U/L Albumin 4.6 (3.5-5.2) g/dL Urine 11/24/24 Range/Units 10:45 Urine Color Yellow (Yellow) Urine Appearance Clear (CLEAR) Urine pH 5.5 (5-7) Ur Specific [place] 1.016 (1.005-1.030) Urine Protein Negative (Negative) Urine Glucose (UA) Negative (Normal) Urine Ketones Negative (Negative) Urine Nitrate Negative (Negative) Urine Bilirubin Negative (Negative) Ur Leukocyte Esterase Negative (Negative) Urine RBC 0-2 (0-2) /hpf Urine WBC 0-5 (0-5) /hpf Cardiac Studies: No Data to Display
[2024-12-01] VITALS (11 sets, daily range): BP systolic 133–162; BP diastolic 85–124; PULSE 74–97; RESP 16–18; TEMP 36.1–36.6; O2SAT 96–100; BMI 34.0
[2024-12-01] MEDS: sodium chloride 0.9% 1,000 ML 30 ML IV (11:56)
[2024-12-01] MEDS: scopolamine 1 mg PATCH 1 PATCH TRANSDERMA (11:59)
[2024-12-01] MEDS: ceFAZolin 2,000 mg SDV 2000 MG IVP (12:22)
--- NOTE | 2024-12-01 12:40 | W.PM.OPSUD ---
Surgery/Procedure H&P Update DATE OF PROCEDURE: December 01, 2024 DATE H&P PERFORMED: 11/24/24 H&P UPDATE INFORMATION: I have reviewed H&P completed within last 30 days, I have examined patient prior to procedure and No changes to prior documentation PREOP DIAGNOSIS: postmenopausal bleeding PLANNED PROCEDURE: Operation Date: 12/01/24 13:15 Proposed Procedures p Hysteroscopy w/ Myosure 25735, 45097, N95.0(Not Applicable) - Timothy Johnson MD s Dilation And Curettage (D&C)(Not Applicable) - Timothy Johnson MD
--- NOTE | 2024-12-01 13:30 | P.ANESUD_ITS ---
Pre-Anesthetic Update Pre-Anesthetic Assessment: Date of Surgery/Procedure: 12/01/24 Preop Kelly gnosis: postmenopausal bleeding Proposed Procedure: Operation Date: 12/01/24 13:15 Proposed Procedures p Hysteroscopy w/ Myosure 75514, 57998, N95.0(Not Applicable) - Timothy Johnson MD s Dilation And Curettage (D&C)(Not Applicable) - Timothy Johnson MD Changes from Pre-Anesthetic Assessment: No changes since patient was last seen in the preoperative clinic. Plan for general anesthesia Last Intake: Intake Last Liquid Date 11/30/24 Last Liquid Time 18:00 Last Solid Date 11/30/24 Last Solid Time 18:00 Labs Last 48hrs: Blood Bank 12/01/24 11:50 Blood Type O Positive Rho(D) Type Rh positive Antibody Screen Negative Vitals: Temperature 97.6 F 12/01/24 11:47 Temperature Source Temporal Artery S can 12/01/24 11:47 Pulse Rate 74 12/01/24 11:47 Respiratory Rate 16 12/01/24 11:47 Blood Pressure 148/107 12/01/24 12:04 Blood Pressure Betzaida n 120 12/01/24 12:04 Pulse Oximetry 98 12/01/24 11:47 Oxygen Delivery Me thod Room Air 12/01/24 11:47 Cardiac Studies: No Data to Display
[2024-12-01] MEDS: lidocaine-epi 2% PF 1:200,000 20 mL SDV 10 ML XX (14:09)
--- NOTE | 2024-12-01 14:12 | PM.OP ---
Operative Report Date of procedure: December 01, 2024 Pre-op diagnosis: Postmenopausal bleed Post-op diagnosis: same Post-op diagnosis: Endometrial polyp Post-op findings: Endometrial polyp Procedure done: Hysteroscopy with dilation and curettage via MyoSure Polypectomy Specimens removed/disposition: Endometrial polyp Surgeon: Timothy Johnson MD Estimated blood loss (mL): 5 IV fluids (mL): 800 Complications: None Procedure: After informed consent, the risks included but were not limited to bleeding, infection, injury to internal organs. The patient was counseled on a possible laparotomy and on the potential need for hysterectomy. The patient expressed understanding of the risks involved, all questions were answered, and the patient consented to the procedure. The patient was taken to the operating room where general anesthesia was administered. She was placed in the dorsal lithotomy position and prepped and draped in sterile fashion. A time out procedure was performed. The patient was examined under anesthesia and found to have a normal uterus with normal adnexa. A sterile weight speculum was placed in the vagina. The uterus was then gently sounded to 8 cm, and the cervix was dilated. The 0 degrees MyoSure hysteroscope was advanced gently to the uterine fundus while visualizing the monitor. Survey of the uterine cavity showed: Endometrial polyp on the left lateral wall, the fundus shows atrophic endometrium; left ostium was visualized, and lateral wall with atrophic endometrium; right ostium visualized, and lateral wall with atrophic in the mid; anterior and posterior choi are with atrophic endometrium; endocervical canal is normal. The MyoSure device was advanced and the direct visualization the endometrial polyp was morcellated without complication. At the end of morcellation the fluid deficit was 104 mL and was estimated at approximately 70 mL were on the floor. There was minimal bleeding noted and the tenaculum removed with goad hemostasis noted. The patient tolerated the procedure well. The patient was taken to the recovery area in stable condition.
--- NOTE | 2024-12-01 15:30 | ANE.PACU2 ---
Inpatient post-anesthesia follow up: Airway intact: Yes Vital signs: Temperature 98 F Pulse Rate 74 Respiratory Rate 17 Blood Pressure 133/87 Pulse Oximetry 100 Oxygen Delivery Me thod Room Air Oxygen Flow Rate Fraction of Inspir ed Oxygen Hydration adequate: Yes Nausea and vomiting: No Pain level: 1 Mental status: Baseline
== END 2024-12-01 15:30 | disposition home or self-care (01) ==
PROVIDERS: PCP Family Medicine; Visit Provider Obstetrics & Gynecology
PROC: 0UDB8ZZ Extraction of Endometrium, Via Natural or Artificial Opening Endoscopic (ICD-10-PCS; CPT 58558; principal; 2024-12-01 13:05)
PROC: (CPT 58120; 2024-12-01 13:05)
DX: N95.0 Postmenopausal bleeding (principal); N84.0 Polyp of corpus uteri; I10 Essential (primary) hypertension
CPT/HCPCS: 58558; 80053; 81001; 85025; 86850; 86900; 88305; J0690; J1100; J1200; J2250; J2405; J2704; J3010; J7030

== ENCOUNTER 2024-12-14 08:09 | Emergency (ER) | payer OTHER, SELFPAY ==
[2024-12-14 08:38] LABS: Basophils % 0.5 %; Eosinophils # 0.1 10^3/uL (0.0-0.8); Eosinophils % 1.4 %; Lymphocytes # 2.3 10^3/uL (0.8-4.8); Lymphocytes % 25.9 %; Mean Corpuscular HGB Conc 32.6 g/dL (30-55); Mean Corpuscular Volume 92.1 fl (85-98); Mean Platelet Volume 9.8 fL (7.4-10.4); Monocytes # 0.6 10^3/uL (0.2-0.9); Monocytes % 7.2 %; Neutrophils # 5.74 10^3/uL (1.8-7.7); Neutrophils % 64.5 %; Nucleated Red Blood Cells % 0 %; Platelet Count 286 10^3/cmm (157-399); Red Blood Count 4.56 10^6/uL (3.85-5.65); Red Cell Distribution Width 12.5 % (12.1-15.1); White Blood Count 8.88 10^3/uL (3.29-11.43)
[2024-12-14 08:52] VITALS: BP 117/77; PULSE 86; RESP 18; TEMP 36.7; O2SAT 99; BMI 34.0
[2024-12-14 09:00] LABS: Alanine Aminotransferase 47 U/L (0-33); Albumin Level 3.8 g/dL (3.5-5.2); Alkaline Phosphatase 88 U/L (35-105); Anion Gap 17.3 (5-19); Aspartate Amino Transferase 29 U/L (0-32); Blood Urea Nitrogen 8 mg/dL (6-20); Calcium 8.4 mg/dL (8.5-10.5); Carbon Dioxide 20 mmol/L (22-29); Chloride 103 mmol/L (98-107); Creatinine Clr Calc Pharmacy 83.7932; Globulin 2.6 g/dL (1.3-4.6); Glomerular Filtration Rate 85.6 mL/min (90-130); Glucose 100 mg/dL (65-115); Lipase 31 U/L (13-60); Osmolality Calculated 282 mOsm/kg (285-295); Potassium 3.3 mmol/L (3.5-5.1); Sodium 137 mmol/L (136-145); Total Bilirubin 0.2 mg/dL (0.15-1.2); Total Protein 6.4 g/dL (6.6-8.7)
--- NOTE | 2024-12-14 10:12 | ED_ITS ---
HPI - Nausea/Vomiting/Diarrhea 2 General: Chief complaint: Nausea/Vomiting/Diarrhea Stated complaint: diarrhea Time Seen by Provider: 12/14/24 10:03 Source: patient Mode of arrival: ambulatory Limitations: no limitations History of Present Illness: 59-year-old female who states that she h as been having nausea vomiting diarrhea that is been going on for the last 7 days. States she had some cramping the first 2 days that is improved she denies any fever states her stools have been dark but not bloody. She denies any worsening improving factors. She has had sick contacts Associated nausea: Yes Associated symtoms: Reports nausea; Denies chest pain, dysuria or headache(s) Related Data Home Medications Medication Instructions Recorded Confirmed lisinopril 40 mg tablet 40 mg PO DAILY 10/24/24 12/01/24 Previous Rx's Medication Instructions Recorded left knee case finisher brace #1 ea 05/01/24 venlafaxine 150 mg 150 mg PO .12 pm #90 caps 09/16/24 capsule,extended release 24 hr (Effexor XR) venlafaxine 75 mg capsule,extended 75 mg PO .12 pm #90 caps 09/16/24 release 24 hr (Effexor XR) acetaminophen 325 mg capsule 325 mg PO Q4H PRN fever or pain 12/01/24 #60 caps ibuprofen 800 mg tablet 800 mg PO TID PRN pain #60 tabs 12/01/24 ondansetron 4 mg disintegrating 4 mg PO Q6H PRN nausea and 12/14/24 tablet vomiting #14 tabs Allergies Allergy/AdvReac Type Severity Reaction Status Date / Time metronidazole [From Flagyl] Allergy Mild hives Verified 12/14/24 08:59 Review of Systems 2 Const: Denies: fever(s), chills, body aches or change in appetite ENMT: Denies: throat pain or dental pain Card: Denies: chest pain Resp: Denies: dyspnea GI: Reports: nausea, vomiting and diarrhea; Denies: abdominal pain : Denies: dysuria Musc: Denies: neck pain or back pain Skin/Breast: Denies: rash Neuro: Denies: headache(s) PFSH ED 2 PFSH: Medical History Postmenopausal bleeding (~2019) Failed to follow-up for evaluation Hypertension No pertinent past medical history neghx: dm,thyroid,dvt/pe PCP: Dr. Cabrera Binge-eating disorder, severe Psychiatric care Generalized anxiety disorder Major depressive disorder, recurrent severe without psychotic features Surgical History History of bilateral tubal ligation (~1999) [facility] with Dr. Roberts Family History Mother , Age 62 Hypertension Diabetes Father , Age 52 from [place] Diabetes CAD (coronary artery disease) Heart disease Denies family history of Colon cancer Ovarian cancer Prostate cancer Hyperlipidemia Breast cancer Uterine cancer Thyroid disease Stroke Social History Smoking and tobacco/nicotine status: never used tobacco/nicotine Second hand smoke exposure: No Alcohol intake: never Physical Exam 2 Const: COMMON NORMALS: no acute distress, patient oriented x3 and healthy appearing HENMT: COMMON NORMALS: normocephalic and atraumatic HEAD & SCALP: n ormocephalic and atraumatic Eye: COMMON NORMALS: conjunctivae normal CONJUNCTIVA: Yes conjunctivae normal Neck/C-Spine: COMMON NORMALS: full ROM and supple Chest: COMMONS NORMALS: normal inspection of the chest and normal palpation of entire chest wall Resp: COMMON NORMALS: normal respiratory effort, No retractions, No use of accessory muscles and clear to auscultation bilaterally AUSCULTATION: clear to auscultation bilaterally Cardio: COMMON NORMALS: regular rate, regular rhythm and No murmurs present (Cardio) RATE: regular rate RHYTHM: regular rhythm GI: COMMON NORMALS: Normal to inspection, nondistended, normoactive bowel sounds present, Soft to palpation, non-tender and no masses PALPATION: Yes Soft to palpation Extremity: COMMON NORMALS: normal to inspection and full ROM Neuro: COMMON NORMALS: patient oriented x3, moves all extremities and no focal motor deficits Psych: COMMON NORMALS: mental status grossly normal, Normal thought process present and cooperative THOUGHT PROCESS: Normal thought process present Skin: COMMON NORMALS: no rashes or lesions noted and no wounds GENERAL SKIN EXAM: no rashes or lesions noted Course 2 Vital Signs: Vital signs: Vital Signs Temperature 98.1 F 12/14/24 08:52 Pulse Rate 86 12/14/24 08:52 Respiratory Rate 18 12/14/24 08:52 Blood Pressure 117/77 12/14/24 08:52 Pulse Oximetry 99 12/14/24 08:52 Oxygen Delivery Me thod Room Air 12/14/24 08:52 MDM - Nausea/Vomiting/Diarrhea Medical Decision Making Patient presents here with vomiting diarrhea she has plans for RSV here blood works normal no signs of severe infection she is stable for discharge follow-up PCP return if worsening. Medical Records I reviewed the patient's medical records. Lab Data I reviewed the patient's lab results. 12/14/24 08:33 12/14/24 08:33 Laboratory Results WBC 8.88 10^3/uL (3.29-11.43) 12/14/24 08:33 RBC 4.56 10^6/uL (3.85-5.65) 12/14/24 08:33 Hgb 13.70 g/dL (11.27-16.99) 12/14/24 08:33 Hct 42.0 % (36-47) 12/14/24 08:33 MCV 92.1 fl (85-98) 12/14/24 08:33 MCH 30.0 pg (27-33) 12/14/24 08:33 MCHC 32.6 g/dL (30-55) 12/14/24 08:33 RDW 12.5 % (12.1-15.1) 12/14/24 08:33 Plt Count 286 10^3/cmm (157-399) 12/14/24 08:33 MPV 9.8 fL (7.4-10.4) 12/14/24 08:33 Neut % (Auto) 64.5 % 12/14/24 08:33 Lymph % (Auto) 25.9 % 12/14/24 08:33 [place] % (Auto) 7.2 % 12/14/24 08:33 Eos % (Auto) 1.4 % 12/14/24 08:33 Baso % (Auto) 0.5 % 12/14/24 08:33 Neut # (Auto) 5.74 10^3/uL (1.8-7.7) 12/14/24 08:33 Lymph # (Auto) 2.3 10^3/uL (0.8-4.8) 12/14/24 08:33 [place] # (Auto) 0.6 10^3/uL (0.2-0.9) 12/14/24 08:33 Eos # (Auto) 0.1 10^3/uL (0.0-0.8) 12/14/24 08:33 Baso # (Auto) 0.0 10^3/uL (0.0-0.1) 12/14/24 08:33 Nucleated RBC % (auto) 0 % 12/14/24 08:33 Nucleated RBCs # 0.0 /100WBC 12/14/24 08:33 Sodium 137 mmol/L (136-145) 12/14/24 08:33 Potassium 3.3 mmol/L (3.5-5.1) L 12/14/24 08:33 Chloride 103 mmol/L (98-107) 12/14/24 08:33 Carbon Dioxide 20 mmol/L (22-29) L 12/14/24 08:33 Anion Gap 17.3 (5-19) 12/14/24 08:33 BUN 8 mg/dL (6-20) 12/14/24 08:33 Creatinine 0.7 mg/dL (0.5-0.9) 12/14/24 08:33 GFR Calculation 85.6 mL/min (90-130) L 12/14/24 08:33 Glucose 100 mg/dL (65-115) 12/14/24 08:33 Calculated Osmolality 282 mOsm/kg (285-295) L 12/14/24 08:33 Calcium 8.4 mg/dL (8.5-10.5) L 12/14/24 08:33 Total Bilirubin 0.2 mg/dL (0.15-1.2) 12/14/24 08:33 AST 29 U/L (0-32) 12/14/24 08:33 ALT 47 U/L (0-33) H 12/14/24 08:33 Alkaline Phosphatase 88 U/L (35-105) 12/14/24 08:33 Total Protein 6.4 g/dL (6.6-8.7) L 12/14/24 08:33 Albumin 3.8 g/dL (3.5-5.2) 12/14/24 08:33 Globulin 2.6 g/dL (1.3-4.6) 12/14/24 08:33 Lipase 31 U/L (13-60) 12/14/24 08:33 Urine Color Yellow (Yellow) 12/14/24 10:20 Urine Appearance Clear (CLEAR) 12/14/24 10:20 Urine pH 5.5 (5-7) 12/14/24 10:20 Ur Specific [place] 1.022 (1.005-1.030) 12/14/24 10:20 Urine Protein 1+ (Negative) A 12/14/24 10:20 Urine Glucose (UA) Negative (Normal) 12/14/24 10:20 Urine Ketones Trace (Negative) 12/14/24 10:20 Urine Blood Negative (Negative) 12/14/24 10:20 Urine Nitrate Negative (Negative) 12/14/24 10:20 Urine Bilirubin Negative (Negative) 12/14/24 10:20 Urine Urobilinogen 1.0 mg/dL (Negative) 12/14/24 10:20 Ur Leukocyte Esterase Negative (Negative) 12/14/24 10:20 Urine RBC 0-2 /hpf (0-2) 12/14/24 10:20 Urine WBC 0-5 /hpf (0-5) 12/14/24 10:20 Ur Squamous Epith Cells 6-10 /hpf (0-5) 12/14/24 10:20 Calcium Oxalate Crystal 5-10 /hpf H 12/14/24 10:20 Amorphous Sediment Not Reportable 12/14/24 10:20 Urine Bacteria Trace /hpf (NONE) 12/14/24 10:20 Hyaline Casts 7.01 /lpf 12/14/24 10:20 Coronavirus (PCR) Negative (Negative) 12/14/24 11:09 Influenza A (PCR) Negative (Negative) 12/14/24 11:09 Influenza Type B (PCR) Negative (Negative) 12/14/24 11:09 RSV (PCR) Positive (Negative) A 12/14/24 11:09 No radiology studies performed this visit Discharge Plan Discharge Patient Disposition: Home Clinical Impression: RSV infection, Nausea vomiting and diarrhea Condition: Stable Prescriptions: New ondansetron 4 mg tablet,disintegrating 4 mg PO Q6H PRN (Reason: nausea and vomiting) Qty: 14 0RF No Action (DME) left knee case finisher brace See Rx Instructions .Route .MEDSUPPLY Qty: 1 0RF Rx Instructions: As directed venlafaxine [Effexor XR] 75 mg capsule,extended release 24hr 75 mg PO .12 pm Qty: 90 2RF Rx Instructions: Take one capsule at noon with 150 mg capsule, total dose 225 mg venlafaxine [Effexor XR] 150 mg capsule,extended release 24hr 150 mg PO .12 pm Qty: 90 2RF Rx Instructions: Take one capsule at noon lisinopril 40 mg tablet 40 mg PO DAILY acetaminophen 325 mg capsule 325 mg PO Q4H PRN (Reason: fever or pain) Qty: 60 0RF ibuprofen 800 mg tablet 800 mg PO TID PRN (Reason: pain) Qty: 60 0RF Discharge Orders: Discharge ED (Routine); Ordered 12/14/24 Ordered By: Sherry Mccormick Referrals: Caroline Santamaria DO [Primary Care Provider] - 4-7 days Discharge Diet: Advance as tolerated Discharge Activity: Resume usual activity Patient Instructions: Acute Nausea and Vomiting (ED), Acute Diarrhea (ED), Respiratory Syncytial Virus (RSV) Coding Level of Care Code ED Seaman Officer for Joao Gonzalez
[2024-12-14 10:30] VITALS: BP 118/82; PULSE 84; O2SAT 94
[2024-12-14 10:32] LABS: Bilirubin Urine Negative (Negative); Blood Urine Negative (Negative); Glucose Urine UA Negative (Normal); Ketones Urine Trace (Negative); Leukocyte Esterase Urine Negative (Negative); Nitrate Urine Negative (Negative); Protein Urine 1+ (Negative); Specific Gravity, Urine 1.022 (1.005-1.030); Urine Appearance Clear (CLEAR); Urine Color Yellow (Yellow); pH Urine 5.5 (5-7)
[2024-12-14 10:37] LABS: Add Urine Microscopic? YES; Bacteria Urine Trace /hpf; Hyaline Casts Urine 7.01 /lpf; RBC Urine 0-2 /hpf (0-2); WBC Urine 0-5 /hpf (0-5)
[2024-12-14 10:51] LABS: UA Slide Review UA Slide Review Perf
[2024-12-14 11:00] VITALS: BP 110/76; PULSE 88; O2SAT 98
[2024-12-14] MEDS: ondansetron 2 mg/ML SDV 2 mL 4 MG IM (11:01)
[2024-12-14] MEDS: diphenoxylate/atropine Tablet 2 TAB PO (11:03)
[2024-12-14 11:30] VITALS: BP 135/80; PULSE 77; O2SAT 95
[2024-12-14 11:58] LABS: Covid PCR NEGATIVE (Negative); Influenza A NEGATIVE (Negative); Influenza B NEGATIVE (Negative)
[2024-12-14 12:00] VITALS: BP 110/75; PULSE 80; O2SAT 95
[2024-12-14 12:01] LABS: Respiratory Syncytial Virus Ce POSITIVE (Negative)
[2024-12-14 12:30] VITALS: BP 105/75; PULSE 79; O2SAT 96
== END 2024-12-14 12:30 | disposition home or self-care (01) ==
PROVIDERS: Emergency Provider Emergency Medicine; PCP Family Medicine
DX: R11.2 Nausea with vomiting, unspecified (principal); B33.8 Other specified viral diseases; Z11.52 Encounter for screening for COVID-19; I10 Essential (primary) hypertension
CPT/HCPCS: 36415; 80053; 81001; 83690; 85025; 87637; 96372; 99284; J2405

== ENCOUNTER 2024-12-17 14:04 | Outpatient (CLI) | payer OTHER, SELFPAY | END 2024-12-17 14:05 | disposition home or self-care (01) | LOC: SLEEP 14:05 | PROVIDERS: PCP Family Medicine; Visit Provider Family Medicine | DX: G47.33 Obstructive sleep apnea (adult) (pediatric) (principal) | CPT/HCPCS: G0399 ==

== ENCOUNTER → 2025-03-27 10:00 | Outpatient (BNVA) | payer OTHER, SELFPAY | PROVIDERS: PCP Family Medicine; Visit Provider Nurse Practitioner Psychiatric/Mental Health | DX: Z79.899 Other long term (current) drug therapy (principal) | CPT/HCPCS: 81001 ==

== ENCOUNTER → 2025-04-30 09:12 | Outpatient (BNVA) | payer OTHER, SELFPAY | PROVIDERS: PCP Family Medicine; Visit Provider Physician Assistant | DX: M25.562 Pain in left knee (principal); M17.12 Unilateral primary osteoarthritis, left knee | CPT/HCPCS: 73560; 73565 ==

== ENCOUNTER → 2025-07-22 12:37 | Outpatient (BNVA) | payer OTHER, SELFPAY | PROVIDERS: PCP Family Medicine; Visit Provider Student in an Organized Health Care Education/Training Program | DX: Z01.818 Encounter for other preprocedural examination (principal) | CPT/HCPCS: 36415; 80053; 81001; 85025 ==

== ENCOUNTER 2025-08-04 07:15 | Outpatient (CLI) | payer OTHER, SELFPAY ==
--- NOTE | 2025-08-04 07:15 | CT_ITS ---
WS: [id number] CT LEFT KNEE, NONCONTRAST [facility] TECHNIQUE: Noncontrast CT of the LEFT knee to include the LEFT hip and ankle. CLINICAL INFORMATION: LEFT TOTAL KNEE ARTHROPLASTY DLP: 952.[address] scans at [facility] use at least one of these dose optimization techniques: automated exposure control; mA and/or kV adjustment per patient size (includes targeted exams where dose is matched to clinical indication); or iterative reconstruction. FINDINGS: Moderate tricompartmental arthritis. Hypertrophic patella. Moderate suprapatellar effusion. Tiny fat-containing umbilical hernia. CT/CT knee LT JORDAN [id number] IMPRESSION: Images obtained for preoperative purposes.
== END 2025-08-04 07:16 | disposition home or self-care (01) ==
LOC: RAD 07:17
PROVIDERS: PCP Family Medicine; Visit Provider Student in an Organized Health Care Education/Training Program
DX: M17.12 Unilateral primary osteoarthritis, left knee (principal); Z01.818 Encounter for other preprocedural examination; M25.462 Effusion, left knee
CPT/HCPCS: 73700; 81003

== ENCOUNTER 2025-08-12 15:35 | Observation (INO) | payer OTHER, SELFPAY ==
[2025-08-12] VITALS (15 sets, daily range): BP systolic 105–146; BP diastolic 56–98; PULSE 79–116; RESP 16–118; TEMP 36.3–37.6; O2SAT 93–98; BMI 40.6
--- NOTE | 2025-08-12 14:03 | P.HPUD_ITS ---
Surgery/Procedure H&P Update DATE OF PROCEDURE: August 12, 2025 DATE H&P PERFORMED: 08/04/25 H&P UPDATE INFORMATION: I have reviewed H&P completed within last 30 days, I have examined patient prior to procedure and No changes to prior documentation CHANGES TO PREVIOUS DOCUMENTATION: Patient seen and evaluated she is cleared the preoperative clearance process. No new complaints since last office visit patient is ready to proceed with mullen rgical intervention. Patient understands once again the ins and outs procedure the risk benefits complication alternatives surgical nonsurgical treatment options. Understanding risk of surgery patient elected proceed with surgical invention. All questions answered at this time. PREOP DIAGNOSIS: Left knee DJD PRIMARY INDICATION FOR PROCEDURE: Left knee DJD PLANNED PROCEDURE: Operation Date: 08/12/25 15:00 Proposed Procedures p Anibal Robot Total Knee Arthroplasty(Left) - Neftali Patel DO
--- NOTE | 2025-08-12 14:32 | P.ANESASSM_ITS ---
Pre-Anesthetic Assessment Height/Weight: Height 5 ft 1 in Weight 215 lb Temp Pulse Resp BP Pulse Ox O2 Del Method 97.4 F L 87 18 134/98 98 Room Air 08/12/25 14:08 08/12/25 14:08 08/12/25 14:08 08/12/25 14:08 08/12/25 14:08 08/12/25 14:12 Preop Diagnosis: Left knee DJD Operation Date: 08/12/25 15:00 Proposed Procedures p Anibal Robot Total Knee Arthroplasty(Left) - Neftali Patel, DO Was Beta Rishabh taken within 24 hours: N/A Was Clonidine taken within 24 hours: N/A Last intake: Intake Last Liquid Date 08/12/25 Last Liquid Time 10:00 Last Solid Date 08/11/25 Last Solid Time 19:30 Social No alcohol and No tobacco Exam alert, oriented x 3, clear to auscultation bilaterally and regular rate & rhythm Airway Submandibular: within normal limits Cervical ROM: within normal limits Mallampati: Class II Dentition: full Anesthetic Plan ASA status: 3 Anesthesia: MAC and Regional (specify below) Other: No prior issues with anesthesia Plan to be n.p.o. at midnight prior to surgery History of hypertension on lisinopril Denies any pulmonary issues Labs reviewed 07/22/25 and acceptable for procedure METs greater than 4 EKG SR Plan for spinal anesthetic with PNB Medications/Allergies Home Medications ?Medication ?Instructions ?Recorded ?Confirmed ?Last Taken ?Type left knee temperature control inspector brace #1 ea 05/01/24 08/04/25 Unkn own Rx lisinopril 40 mg tablet 40 mg PO DAILY 10/24/2407/1408/06/25 History estradiol 1 mg tablet 1 mg PO DAILY 90 days #90 ta bs 01/12/25 08/06/25 08/06/25 Rx venlafaxine 150 mg 300 mg (2 x 150 mg) PO .12 p m #180 04/27/25 08/06/25 08/12/25 Rx capsule,extended release 24 hr caps (Effexor XR) Allergies Allergy/AdvReac Type Severity Reaction Status Date / Time metronidazole (From Flagyl) Allergy Mild hives Verified 08/06/25 11:29 [facility] Anesthesia Medical History Thickened endometrium polypectomy 11/2024-- benign Postmenopausal bleeding (~2019) Failed to follow-up for evaluation Hypertension No pertinent past medical history neghx: dm,thyroid,dvt/pe PCP: Dr. 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 History of bilateral tubal ligation (~1999) [facility] with Dr. Roberts Family History Mother , Age 62 Hypertension Diabetes Father , Age 52 from [place] Diabetes CAD (coronary artery disease) Heart disease Denies family history of Colon cancer Ovarian cancer Prostate cancer Hyperlipidemia Breast cancer Uterine cancer Thyroid disease Stroke Social History Smoking and tobacco/nicotine status: never used tobacco/nicotine Second hand smoke exposure: No Alcohol intake: never
[2025-08-12] MEDS: acetaminophen 1,000 MG/100 ML PIGGYBACK 400 MG IV ×2 (14:33→23:14)
[2025-08-12 14:37] LABS: Hematocrit 39.6 % (36-47); Hemoglobin 13.20 g/dL (11.27-16.99); Mean Corpuscular HGB Conc 33.3 g/dL (30-55); Mean Corpuscular Hemoglobin 31.0 pg (27-33); Mean Corpuscular Volume 93.0 fl (85-98); Nucleated Red Blood Cells % 0 %; Platelet Count 311 10^3/cmm (157-399); Red Blood Count 4.26 10^6/uL (3.85-5.65); White Blood Count 9.78 10^3/uL (3.29-11.43)
[2025-08-12 15:00] LABS: Anion Gap 16.8 (5-19); Blood Urea Nitrogen 15 mg/dL (6-20); Calcium 9.3 mg/dL (8.5-10.5); Carbon Dioxide 23 mmol/L (22-29); Chloride 106 mmol/L (98-107); Creatinine Clr Calc Pharmacy 107.8790; Glucose 74 mg/dL (65-115); Osmolality Calculated 293 mOsm/kg (285-295); Potassium 3.8 mmol/L (3.5-5.1); Sodium 142 mmol/L (136-145)
[2025-08-12] MEDS: ceFAZolin 2,000 MG in sodium chloride 0.9% (plus) 50 ML 100 MG IV ×2 (15:19→23:14)
--- NOTE | 2025-08-12 15:42 | ANES.PROC ---
Anesthesia Procedures Procedure/Date: 08/12/25 Nerve Block ^: Nerve Block 1: Main Anesthesia: spinal anesthesia block Time Out Performed: Yes Consent: requested by attending/covering physician and from patient Laterality: Left Nerve block location: adductor canal Anesthesia monitors applied: pulse oximetry, EKG, BP cuff and oxygen Nerve block position: supine Anesthetic Used: ropivicaine 0.5% Amount of anesthesia used (mL): 15 Ultrasound used to: recognize landmarks Nerve Stimulator Used?: Yes Interscalene/Femoral BLK: other needle (pjunk 4inch) Injection: neg aspiration of heme Patient Tolerated Procedure: well Complications: none
[2025-08-12] MEDS: tranexamic acid 1,000 mg/10mL SDV 1000 MG IV (15:59)
[2025-08-12] MEDS: ROPivacaine 0.2% Premix 100 mL 200 MG INTRA-ARTI (16:25)
[2025-08-12] MEDS: tranexamic acid 1,000 mg/10mL SDV 1000 MG XX (16:27)
--- NOTE | 2025-08-12 17:23 | W.PM.BPON ---
Date of Procedure: 08/12/2025 Surgeon: Neftali Patel DO Pressurization Mechanic(s): Edwardo Patel PA-C Procedure(s) performed: Left total knee arthroplasty?Anibal robotic assisted Findings of the procedure(s): Underwent procedure as planned without issues or complications taken recovery in stable condition Estimated blood loss: 25 mL Specimen(s) removed: Tibia femur and patellar bone cuts removed Post-operative diagnosis: Left knee DJD
--- NOTE | 2025-08-12 17:24 | PM.OP ---
Operative Report Date of procedure: August 12, 2025 Surgeon: Neftali Patel DO Classified Advertising Manager: Edwardo Patel PA-C: PA was necessary for assistance in this case with leg positioning retraction and protection of neurovascular structures as well as assistance in implantation wound closure and dressing application. Procedure: Preoperative diagnosis: Left knee degenerative joint disease Post-op diagnosis: Same Procedure done: Left total knee arthroplasty, cemented?robotic assisted Anibal Implants: Airam triathlon size 4 femur CR cemented?left Airam triathlon size? 3 tibia universal baseplate cemented [place] triathlon symmetric patella size 31 mm [place] triathlon polyethylene 10mm Surgeon: Neftali Patel DO Estimated blood?loss: 25 mL Tourniquet 64minutes IV fluids: 1200 mL Urine output: 500 mL Complications: None Condition: stable Disposition: floor Brief History: Patient is a 59-year-old female with with chronic?left knee degenerative joint disease.? Patient has been worked up in the outpatient setting in the orthopedic office at this point time through shared decision making given? ixip-[id number]-vnbo arthritis as well as failed conservative treatment, and pt would?like to proceed with a?left total knee arthroplasty.? Through shared decision making elected to proceed with surgical intervention for?left total knee arthroplasty- Anibal robotic assist.? We talked about continued conservative treatment and surgical intervention as far as the risk benefits complications alternatives surgical and nonsurgical treatment options.? At this point time understanding patient risks with surgery patient agrees to proceed with surgical intervention.? Once again? risk with surgery include but are not?limited to make it better make it worse blood clot, heart attack, stroke, on the table, infection, injury to nerves or vessels, persistent pain, arthrofibrosis, implant failure.? Understanding these risks patient agrees to proceed with surgical intervention consent was obtained in the preoperative holding area.? All questions answered. Procedure: Patient was seen and evaluated in the preoperative holding area.? Consent was reviewed and signed with patient with plan for?left total knee arthroplasty.? All questions answered.? Correct extremity marked.? Patient seen and evaluated by the anesthesia department and once cleared for surgery was taken back to the operative suite.? Patient was placed into a supine position on the OR table.? All bony prominences were well-padded.? Patient was appropriately secured to the bed.? Patient underwent anesthesia per the anesthesia department.? Patient received spinal anesthesia and? Buckner catheter was placed.? A nonsterile tourniquet was applied to the?left thigh.? At this point in time a final timeout performed.? Patient received appropriate preoperative antibiotics and TXA. Next the?left?lower extremity was then prepped and draped in standard orthopedic fashion. Esmarch tourniquet was used exsanguinate the?left?lower extremity.? Tourniquet was insufflated to 300 mmHg. A standard anterior incision was made over midline of the knee.? Sharp scalpel excision through skin and subcutaneous tissue full-thickness skin flaps were made.? Fascia was elevated off of the extensor retinaculum was stable with medial parapatellar arthrotomy was then made.? The performed standard sequential releases..? Immediately on entry into the joint patient was found to have severe eburnated bone and tricompartmental arthritic changes noted.? With significant osteophyte formation.? Next the the patella was then stuffed and the knee was then flexed.?? Miguel was placed superiorly around the anterior aspect of the femur this was freed of synovium and I subsequently then placed by 2 femur pins to establish my femur arrays for the Anibal robot.? The femur array was then appropriately secured with appropriate visualization.? Next attention was turned towards the tibial rays.? These were then drilled sequentially in parallel fashion and intraincisional.? I then placed my guide as well as my tibial array on in place.? This was appropriately secured and had excellent visualization with the Anibal robot.? Next the tibia checkpoint as well as femur checkpoint were then placed.? At this point time I then subsequently established my head center as well as my medial?lateral malleoli as well as my checkpoints.? Next utilizing standard Anibal technology I then mapped out the appropriate points and confirmation points around the femur as well as the tibia in standard fashion.? Once this was then done I then removed all osteophytes in preparation for dynamic testing.? All osteophytes were removed as well as I removed the ACL and the PCL was excised due to its significant tearing and degeneration noted.? At this point time the knee was brought into full extension and we performed our standard evaluation of our gap balancing stressing his?ligaments and extension as well as flexion appropriate adjustments were made to have appropriate gap balancing in both flexion and extension.? At this point in time we adjusted our implant positioning to accommodate for patient's varus deformity as well as hyperextension we had her 1 mm tighter in extension to help improve her extension laxity. We also patient had roughly a 8 to 10 degree varus deformity were able to correct her down to 4 to 5 degrees varus acceptable patient's ligamentous tolerances.? We get a preoperative plan evaluating our implants which was a size 4 femur and a size 3 tibia.? Next we brought in the Anibal robot and sequentially made our femur cuts.? All excess bony cuts were then removed.? Finally we made our tibial cut.? Once this was done a standard PCL retractor was then placed into this position I excised the medial and?lateral meniscus.? The tibial cut was then subsequently removed all excess bony debris was removed.? I then utilized a?lamina dewaterer operator and remove the posterior osteophytes.? At this point time sized the tibia and confirmed this was a size 3.? I utilized our blunt probe to establish rotation of tibial implant.? Once this was done I then placed my tibia size 3 trial in appropriate position and then subsequently placed tibial pins to hold this into place placed and trialed up to a size 10 mm poly as well as a size 4 femur which was appropriately impacted in place knee was then subsequently brought into extension. Trials were then assessed,? this was stable with varus valgus stress in extension on flexion patient did have a very taut popliteus and tight flexion gap laterally as a result and this popliteus was rubbing on the implant as a result this was released and had an isometric balancing of the implant in flexion as well with a size 10 poly. I had excellent balance gaps in flexion and extension with varus and valgus stresses.? At this point I was satisfied with these implants these were then verified and opened on the back table size 3 tibia, size 4 femur,? size 10mm polythickness.? We did confirm appropriate gap balancing and stresses as well as alignment utilizing? Anibal and were satisfied with this plan.? ?At this point time with my trials in place I then towel clip the patella everted this made appropriate measurements subsequently utilizing freehand technique performed by patellar resurfacing this was confirmed to be appropriate resection and subsequently sized to be a 31 mm symmetric.? My drill peg guides were then clamped and appropriate position and appropriate position in the patella for appropriate tracking and parallel with the joint.? Pegs were drilled trial implant was placed and the knee was then subsequently ranged and found to have excellent patellar tracking.? Femur pegs were then drilled.? At this point time all of our trial implants were removed.? All checkpoints as well as guidepins and arrays were removed and appropriate counts made.?Satisfied with our tibial placement rotation I then utilized the keel punch and prepped the tibia.? The wound bed? was thoroughly irrigated and dried and prepped for cementation.? Cement was mixed on the back table.? Once cement was ready this was then covered onto the tibia and the tibial baseplate was then impacted and all excess cement was removed.? Next the polyethylene was then impacted into place on the tibial baseplate.? Next cement was placed onto the femur as well as under the femur implants and impacted in to place and all excess cement was extruded and removed.? Knee was taken into full extension? to clear all excess cement was removed.? Warm saline was placed over the joint.? I then towel clip patella and dried for cementation. cemented the patella into place.? This was all clamped and the cement was allowed to cure.? Thorough irrigation performed with pulse?lavage.? I then placed my periarticular injection while the cement was curing.? Once cured the knee was taken through range of motion and had excellent stability and gaps were balanced in flexion and extension.? Tourniquet was then deflated. hemostasis satisfactory with electrocautery.? Vancomycin powder was placed in wound bed for antibiotic infection prophylaxis. Next I then subsequently closed the capsule with Ethibond suture as well as a running strata fix suture.? Knee was then taken through range of motion 30 times.? Next the skin was then closed in?layered fashion of running stratifix sutures of deep and subcutenous tissue and skin.? ?closed in flexion and Prineo glue was then placed over the incision this allowed to cure.? Incision was covered with tavia incisional, with ABDs soft roll and Isaias wrap.? Patient was then awakened from anesthesia and taken to PACU in stable condition. Disposition: Patient taken to PACU in stable condition will be admitted to the floor for pain control PT/OT weight-bear as tolerated?left?lower extremity dressing changes as needed, DVT prophylaxis. Pain control. Patient will receive appropriate postoperative antibiotics. patient will be seen today by the internal medicine team for medical management.? Patient will follow up with the office in 2 weeks.? Patient understands agrees with current plan.? All questions answered.
--- NOTE | 2025-08-12 17:49 | XR_ITS ---
WS: [id number] XR knee LT 3V* [id number] REASON FOR EXAM: left total knee arthroplasty FINDINGS: Total left knee arthroplasty. Components of the arthroplasty are intact and in proper position and alignment. No focal bone abnormality. XR/XR knee LT 3V* [id number] IMPRESSION: Total left knee arthroplasty as above.
--- NOTE | 2025-08-12 17:59 | PM.PACU ---
PACU note Narrative: Patient is a 59-year-old female who just underwent a left total knee arthroplasty. Pt transferred to PACU in stable condition. Dressing is dry. pt is awake and alert. Distal pulses are palpable toes are warm and well-perfused. Cap refill is normal and under 2 seconds. Pain is controlled. Unable to perform any further motor or sensory assessment due to residual spinal block Exam: awake Disposition: admitted
--- NOTE | 2025-08-12 18:58 | PM.CONSULT ---
Providers/Reason For Consult Consulting Physician/Specialty*: Smith Jose MD hospitalist Reason for Consult*: Med management hypertension Requesting Physician: Neftali Patel DO Attending Physician: Neftali Patel DO Primary Care Provider: Caroline Santamaria DO History of Present Illness History of Present Illness Esthela Wyatt is a 59 year old female underwent left total knee arthroplasty with history of DJD and morbid obesity with BMI of 40. Release. She denies chest pain coronary disease blood clots in the legs or lungs or cancer. Patient admits to some constipation takes [id number] Dulcolax. She has pretty good relief with coffee and creamer that is warm. She states she has bowel movement most days. Following anesthesia she states she is feeling okay and now is getting the feeling back in her leg. She is able to wiggle her toes and flex her ankle up and down. She denies nausea. Medications/Allergies Home Medications ?Medication ?Instructions ?Recorded ?Confirmed ?Last Taken ?Type left knee rail car unloader brace #1 ea 05/01/24 08/12/25 Unknown Rx lisinopril 40 mg tablet 40 mg PO DAILY 10/24/24 08/06/25 08/06/25 History estradiol 1 mg tablet 1 mg PO DAILY 90 days #90 tabs 01/12/25 08/06/25 08/06/25 Rx venlafaxine 150 mg 300 mg (2 x 150 mg) PO .12 pm #180 04/27/25 08/06/25 08/12/25 Rx capsule,extended release 24 hr caps (Effexor XR) oxycodone 5 mg tablet 5 mg PO Q6H PRN pain postop 7 days 08/12/25 Unknown Rx #28 tabs Allergies Allergy/AdvReac Type Severity Reaction Status Date / Time metronidazole (From Flagyl) Allergy Mild hives Verified 08/06/25 11:29 PFSH Acute PFSH: Medical History (Updated 08/12/25 @ 19:01 by Smith Jose MD) Thickened endometrium polypectomy 11/2024-- benign Postmenopausal bleeding (~2019) Failed to follow-up for evaluation Hypertension No pertinent past medical history neghx: dm,thyroid,dvt/pe PCP: Dr. 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 History of bilateral tubal ligation (~1999) [facility] with Dr. Roberts Family History Mother , Age 62 Hypertension Diabetes Father , Age 52 from [place] Diabetes CAD (coronary artery disease) Heart disease Denies family history of Colon cancer Ovarian cancer Prostate cancer Hyperlipidemia Breast cancer Uterine cancer Thyroid disease Stroke Social History Smoking and tobacco/nicotine status: never used tobacco/nicotine Second hand smoke exposure: No Alcohol intake: never Vitals/I&O/Wt Last Vital Signs Temp 99.2 F 08/12/25 18:19 Pulse 98 08/12/25 18:19 Resp 16 08/12/25 18:19 BP 125/79 08/12/25 18:19 Pulse Ox 93 08/12/25 18:19 O2 Del Method Room Air 08/12/25 18:19 08/12/25 08/12/25 08/12/25 06:59 14:59 22:59 Intake Total 250 / 250 Output Total 525 / 525 Balance -275 / -275 Weight last 48 hrs Weight 97.522 kg Physical Exam Urinary Catheter Management: Buckner: Cath Placed During This Visit: yes Reason for Continuing Indwelling Catheter: Perioperative Use in Selected Surgeries Urinary Catheter Date of Insertion: 08/12/25 Urinary Catheter Time of Insertion: 15:45 Data 08/12/25 14:15 08/12/25 14:15 A&P Assessment and plan 1. Hypertension: Resume home blood pressure med which is lisinopril 40 mg daily started in the morning 2. Obesity, morbid, BMI 40.0-49.9: complicates all aspects of care. Pt doing well start Incentive spirometry 3. Left knee DJD: post TKA and doing well. PDMP PDMP Reviewed: Not Reviewed Coding Level of Care Code 90539 Diagnoses Hypertension I10 Obesity, morbid, BMI 40.0-49.9 E66.01 Left knee DJD M17.12 Time Spent (min) 35
[2025-08-12] MEDS: tranexamic acid 1,000 MG/100 ML PREMIX 600 MG IV (20:53)
[2025-08-12] MEDS: chlorhexidine gluconate 0.12% Btl 473 mL 30 ML MUCOUS MEM (23:17)
[2025-08-13] VITALS (8 sets, daily range): BP systolic 96–143; BP diastolic 57–85; PULSE 65–78; RESP 16–18; TEMP 36.4–36.9; O2SAT 96–98
[2025-08-13] MEDS: oxyCODONE 5 mg IR Tab/Cap PO ×3 (00:04→11:52)
[2025-08-13] MEDS: mupirocin oint 22 gm 1 APPLIC NASAL (04:06)
[2025-08-13] MEDS: sennosides-docusate Tablet 2 TAB PO (04:06)
[2025-08-13] MEDS: calcium carb-vit d 600mg/400unit 1 Tablet 1 EACH PO (04:06)
[2025-08-13] MEDS: multivitamin therapeutic Tablet 1 TAB PO (04:06)
[2025-08-13] MEDS: chlorhexidine gluconate 0.12% Btl 473 mL 30 ML MUCOUS MEM ×2 (04:10→11:52)
[2025-08-13 04:46] LABS: Hematocrit 41.1 % (36-47); Hemoglobin 12.60 g/dL (11.27-16.99); Mean Corpuscular HGB Conc 30.7 g/dL (30-55); Mean Corpuscular Hemoglobin 30.4 pg (27-33); Mean Corpuscular Volume 99.3 fl (85-98); Nucleated Red Blood Cells % 0 %; Platelet Count 282 10^3/cmm (157-399); Red Blood Count 4.14 10^6/uL (3.85-5.65); White Blood Count 11.84 10^3/uL (3.29-11.43)
[2025-08-13 05:20] LABS: Blood Urea Nitrogen 13 mg/dL (6-20); Calcium 8.8 mg/dL (8.5-10.5); Carbon Dioxide 19 mmol/L (22-29); Chloride 104 mmol/L (98-107); Creatinine Clr Calc Pharmacy 92.4677; Glucose 118 mg/dL (65-115); Osmolality Calculated 287 mOsm/kg (285-295); Sodium 138 mmol/L (136-145)
[2025-08-13 05:22] LABS: Anion Gap 19.5 (5-19); Potassium 4.5 mmol/L (3.5-5.1)
[2025-08-13] MEDS: acetaminophen 1,000 MG/100 ML PIGGYBACK 400 MG IV ×2 (06:09→14:59)
[2025-08-13] MEDS: ceFAZolin 2,000 MG in sodium chloride 0.9% (plus) 50 ML 100 MG IV ×2 (06:31→14:47)
[2025-08-13] MEDS: APIXABAN 2.5 MG TABLET PO (07:59)
--- NOTE | 2025-08-13 14:51 | PM.DCS ---
Discharge Providers Date of Admission: 08/12/25 15:35 Date of Discharge: August 13, 2025 Attending Provider at Admission: Neftali Patel DO Attending Provider at Discharge: Neftali Patel DO Consults: Dr. Jose?hospitalist Primary Care Provider: Caroline Santamaria DO Diagnoses at Discharge Discharge Diagnosis 1. S/P total knee replacement using cement: 2. Hypertension: 3. Obesity, morbid, BMI 40.0-49.9: 4. Left knee DJD: Reason for Visit Reason for Visit: M1712 Brief History: Status post left total knee arthroplasty?Laiyaoyao robotic assist Hospital Course Hospital Course Patient presented to the preoperative holding area with plan for left total knee arthroplasty after patient has been worked up in the outpatient setting for failed conservative treatment of left knee degenerative joint disease. Once cleared by anesthesia for surgery patient subsequently was taken back to the operative suite underwent anesthesia per anesthesia department and then subsequently underwent a left total knee arthroplasty. Procedure was performed without any complications patient was taken to PACU in stable condition patient recovered well in PACU and then was admitted to the floor postoperatively internal medicine was consulted and on board for medical management and assistance with care. Patient received appropriate PT/OT, postoperative antibiotics, postoperative TXA, pain control, postoperative DVT prophylaxis. Elevation and ice. Patient encouraged for knee range of motion allowed weightbearing as tolerated to the operative lower extremity. Dressing was changed as needed, labs were monitored daily. Patient recovered well postoperatively and worked well and progressed well with therapy. It was determined on postoperative day 1 the patient was stable for discharge from an orthopedic standpoint and medicine. Patient was comfortable with discharge and plan was discharged home. Patient received appropriate discharge instructions as well as pain medication and DVT prophylaxis postoperatively. Given appropriate instructions for dressing management. Patient will follow-up with Dr. Patel/orthopedics in the office in 2 weeks. All questions answered. Understand if there is any issues questions or concerns and contact the office. Physical Exam Narrative: Left knee examination: Dressing on in place, clean dry and intact. No evidence of saturation. Patient has normal postoperative swelling and tenderness to palpation to the knee. Compartments are soft compressible,'s calf soft and nontender. Sensations intact to light touch distally. Distal pulses are palpable. Patient is able to wiggle toes as well as plantarflex and dorsiflex ankle. Urinary Catheter Management: Buckner: Cath Placed During This Visit: yes, but has since been removed by the nurse Reason for Continuing Indwelling Catheter: Required Immobilization for Trauma or Surgery or Anesthesia Urinary Catheter Date of Insertion: 08/12/25 Urinary Catheter Time of Insertion: 15:45 Date Urinary Catheter Removed: 08/13/25 Time Urinary Catheter Discontinued: 06:23 Discharge Data Studies Completed and Pending Completed Studies During Hospitalization Category Date Time Status XR knee LT 3V* [id number] Routine Exams 08/12/25 17:49 Completed Pending at discharge Category Date Time Status Basic Metabolic Panel AM LABS Lab 08/14/25 04:00 Ordered Basic Metabolic Panel AM LABS Lab 08/15/25 04:00 Ordered Complete Blood Count w/Auto AM LABS Lab 08/14/25 04:00 Ordered Complete Blood Count w/Auto AM LABS Lab 08/15/25 04:00 Ordered Radiology Impressions Knee X-Ray 08/12/25 17:49 IMPRESSION: Total left knee arthroplasty as above. Laboratory Results WBC 11.84 10^3/uL (3.29-11.43) H 08/13/25 04:13 RBC 4.14 10^6/uL (3.85-5.65) 08/13/25 04:13 Hgb 12.60 g/dL (11.27-16.99) 08/13/25 04:13 Hct 41.1 % (36-47) 08/13/25 04:13 MCV 99.3 fl (85-98) H D 08/13/25 04:13 MCH 30.4 pg (27-33) 08/13/25 04:13 MCHC 30.7 g/dL (30-55) D 08/13/25 04:13 RDW 12.6 % (12.1-15.1) 08/13/25 04:13 Plt Count 282 10^3/cmm (157-399) 08/13/25 04:13 MPV 10.1 fL (7.4-10.4) 08/13/25 04:13 Neut % (Auto) 80.6 % 08/13/25 04:13 Lymph % (Auto) 13.3 % 08/13/25 04:13 Addison % (Auto) 5.0 % 08/13/25 04:13 Eos % (Auto) 0.2 % 08/13/25 04:13 Baso % (Auto) 0.4 % 08/13/25 04:13 Neut # (Auto) 9.55 10^3/uL (1.8-7.7) H 08/13/25 04:13 Lymph # (Auto) 1.6 10^3/uL (0.8-4.8) 08/13/25 04:13 Addison # (Auto) 0.6 10^3/uL (0.2-0.9) 08/13/25 04:13 Eos # (Auto) 0.0 10^3/uL (0.0-0.8) 08/13/25 04:13 Baso # (Auto) 0.1 10^3/uL (0.0-0.1) 08/13/25 04:13 Nucleated RBC % (auto) 0 % 08/13/25 04:13 Nucleated RBCs # 0.0 /100WBC 08/13/25 04:13 Sodium 138 mmol/L (136-145) 08/13/25 04:13 Potassium 4.5 mmol/L (3.5-5.1) 08/13/25 04:13 Chloride 104 mmol/L (98-107) 08/13/25 04:13 Carbon Dioxide 19 mmol/L (22-29) L 08/13/25 04:13 Anion Gap 19.5 (5-19) H 08/13/25 04:13 BUN 13 mg/dL (6-20) 08/13/25 04:13 Creatinine 0.7 mg/dL (0.5-0.9) 08/13/25 04:13 GFR Calculation 85.6 mL/min (90-130) L 08/13/25 04:13 Glucose 118 mg/dL (65-115) H 08/13/25 04:13 Calculated Osmolality 287 mOsm/kg (285-295) 08/13/25 04:13 Calcium 8.8 mg/dL (8.5-10.5) 08/13/25 04:13 Blood Type O Positive 08/12/25 14:15 Rho(D) Type Rh positive 08/12/25 14:15 Antibody Screen Negative 08/12/25 14:15 Vitals Last Vital Signs Temp 97.5 F L 08/13/25 11:24 Pulse 73 08/13/25 11:24 Resp 18 08/13/25 11:52 BP 117/75 08/13/25 11:24 Pulse Ox 97 08/13/25 11:24 O2 Del Method Room Air 08/13/25 11:24 Discharge Plan Discharge Patient Disposition: Home Condition: Stable Prescriptions: New Eliquis 2.5 mg tablet 2.5 mg PO BID 14 Days Qty: 28 0RF oxycodone 5 mg tablet 5 mg PO Q6H PRN (Reason: pain postop) 7 Days Qty: 28 0RF cefadroxil 500 mg capsule 500 mg PO BID 7 Days Qty: 14 0RF calcium carbonate-vitamin D3 [Calcium 600 + D(3)] 600 mg-10 mcg (400 unit) tablet 1 tab PO DAILY 30 Days Qty: 30 0RF docusate sodium [Col-Rite] 100 mg capsule 100 mg PO BID PRN (Reason: constipation) 14 Days Qty: 28 0RF Continued lisinopril 40 mg tablet 40 mg PO DAILY venlafaxine [Effexor XR] 150 mg capsule,extended release 24hr 300 mg PO .12 pm Qty: 180 2RF Rx Instructions: Take two capsules at noon Held estradiol 1 mg tablet 1 mg PO DAILY 90 Days Qty: 90 3RF Hold Instructions: Resume on 08/27/25. 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 See Rx Instructions .Route .MEDSUPPLY Qty: 1 0RF Rx Instructions: As directed Electronics Tester OK for DC: Orthopedics Discharge Order = DC NOW: Discharge Order (Routine); Ordered 08/13/25 Ordered By: Smith Jose Other Ambulatory Orders: Physical Therapy Eval and Treat Outpatient (Order) Timeframe: 3 Days Facility: [facility] - Location: Physical Therapy [place] Ordered By: Smith Jose Referrals: Neftali Patel DO [Physician, Orthopedics] - 08/26/25 1:15 pm Discharge Diet: Regular Discharge Activity: Limit activity as instructed and Use walker/crutches as instructed Patient Instructions: Cefadroxil (By mouth), Oxycodone, Rapid Release (By mouth), Ondansetron (By mouth), Apixaban (By mouth), Acute Wound Care (DC), Total Knee Replacement (GEN), Joint Replacement Stoplight, Opioid Safety, Post Anesthesia Care, Patient Portal & Emi Instructions Activity Restrictions/Additional Instructions: Orthopedic D/C instructions Keep incisions clean dry and intact, leave Silverlon bandage dressings on in place for 7 days after that may rinse incisions with warm soapy water pat dry and redress with a dry dressing. Patient may weight-bear as tolerate to the operative extremity Utilize walker as needed Encourage knee range of motion Ice and elevate as needed for pain and swelling Take pain medication as prescribed Take antinausea medication as needed Take antibiotic as prescribed Supplement with calcium and vitamin D for bone health and healing Pain medication can cause constipation. take lyey-eez-blygpyi stool softeners and or MiraLAX. Take prescribed Eliquis twice daily for the next 14 days for blood clot prevention May supplement for pain with Tylenol [id number] as needed(1000 mg every 8 hours-do not exceed more than 3000mg in 24-hour period) No baths or soaks Follow-up in the orthopedic office in 2 weeks Contact the office for any questions or concerns Discharge Attestations Time Spent in Discharge Care*: less than 30 min Quality Metrics Clinical Quality Measures [ No reported AMI, CVA or VTE this stay] Coding Level of Care Code Acute Code for Chg Fwd Diagnoses S/P total knee replacement using cement Z96.659 Hypertension I10 Obesity, morbid, BMI 40.0-49.9 E66.01 Left knee DJD M17.12 Time Spent (min) 25
== END 2025-08-13 16:46 | disposition home or self-care (01) ==
LOC: MEDSURG 15:36
PROVIDERS: Physician Assistant; Admitting Provider Student in an Organized Health Care Education/Training Program; PCP Family Medicine; Visit Provider Student in an Organized Health Care Education/Training Program
PROC: 8E0Y0CZ Robotic Assisted Procedure of Lower Extremity, Open Approach (ICD-10-PCS; CPT 27447; principal; 2025-08-12 15:00)
DX: M17.12 Unilateral primary osteoarthritis, left knee (principal); E66.01 Morbid (severe) obesity due to excess calories; Z68.41 Body mass index [BMI] 40.0-44.9, adult; I10 Essential (primary) hypertension; F32.9 Major depressive disorder, single episode, unspecified
CPT/HCPCS: 27447; 20985; 36415; 51702; 73562; 80048; 85025; 86850; 86900; 97110; 97116; 97161; 97165; A4216; C1713; C1776; G0378; J0131; J0169; J0690; J1100; J1885; J2250; J2405; J2704; J2795; J3010; J3373; J7030; J9999; L8699

== ENCOUNTER → 2025-08-26 13:00 | Outpatient (BNVA) | payer OTHER, SELFPAY | PROVIDERS: PCP Family Medicine; Visit Provider Physician Assistant | DX: Z98.890 Other specified postprocedural states (principal); Z96.659 Presence of unspecified artificial knee joint | CPT/HCPCS: 73560; 73565 ==

== ENCOUNTER 2025-08-30 19:42 | Emergency (ER) | payer OTHER, SELFPAY ==
--- OUTSIDE RECORDS SUMMARY | 2025-08-30 19:47 | XMS_ITS | Clinical Summary ---
Author Organization [facility] Address [address] 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 Phone Unavailable Primary Care Provider Unavailabl e Encounters Date Type Department Care Team Description 08/25/2025 External Device Data [facility] ABSTRACTION Provider, Abstract 07/21/2025 External Device Data [facility] ABSTRACTION Provider, Abstract 07/21/2025 External Device Data [facility] ABSTRACTION Provider, Abstract 07/21/2025 External Device Data [facility] ABSTRACTION Provider, Abstract 07/16/2025 Telephone [facility] - Orthopedic [facility] [address] [place] [phone] Barry Irizarry, General from Last 3 Months Social History Tobacco Use Types Packs/Day Years Used Date Smoking Tobacco: Never Assessed Comments Unknown Sex and Gender Information Value Date Recorded Sex Assigned at Not on file 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
--- OUTSIDE RECORDS SUMMARY | 2025-08-30 19:47 | XMS_ITS | Encounter Summary ---
Author Organization [employer] Address 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
--- OUTSIDE RECORDS SUMMARY | 2025-08-30 19:48 | XMS_ITS | Data Portability ---
Author Organization 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 Plan of Treatment Reminders Order Date Submit Date Provider Last Modified By Organization Details Last Modified Time Details Appointments None recorded. Lab rapid flu (A+B), PCR [address] [place] [address] ([facility]), [address] [place], [address], 5 11:18:57 SARS CoV 2 RNA, QL, nasopharynx [address] [facility] ([facility]), [address] [place], [address], 5 13:39:20 Referral None recorded. Procedures None recorded. Surgeries None recorded. Imaging None recorded. Medication Orders amoxicillin 875 mg tablet 2024 025 [facility] [place], [address] [place], [address], 5 05:01:47 azithromyci n 250 mg tablet 2024 025 [facility] [place], [address] [place], [address], 5 17:59:38 prednisone 20 mg tablet 2023 025 [facility] [place], [address] [place], [address], 5 12:59:31 diclofenac sodium 75 mg tablet,lacey yed release 2023 025 [id number], [address] [place], [place], [id number], 10:05:21 Patient TargetsNo targets recorded. Patient InstructionsNo instructions recorded. Reason for Referral None Reported. Results Created Date Observation Date Name Description Value Unit Range Abnormal Flag Note LastModifiedBy Organization Detail LastModifiedTime 12/08/1912/08/2024 SARS CoV 2 RNA, QL, nasop haryn x COVID negati ve Not Available [facility] ([facility]) [address] [place] [address], [address], 12/08/2024 10:56:14 12/08/19 25 12/08/2024 rapid flu (A+B) , PCR Influenza A negati ve Not Available [facility] ([facility]) [address] [place] [address], [address], 12/08/2024 10:56:06 12/08/19 25 12/08/2024 rapid flu (A+B) , PCR Influenza B negati ve Not Available [facility] ([facility]) [address] [place] [address], [phone], 12/08/2024 10:56:06 Result Notes None recorded. Problems Name Problem SNOMED Code Status Onset Date Resolution Date Notes Provider Name and Address Organization Details Recorded Time Benign essential hypertensio n 2972127 Active 2022 Sobeida lafleur [place] - [facility], [facility] 4 11:36:36 Pain of left knee joint 4809316345402 07 Active 2022 Evelio Allan MD [address] [place], [address], [facility] 3 11:24:16 Binge eating disorder 440616207 Active 2022 Evelio Allan MD [address] [place], [address], [facility] 3 11:31:27 Problem Notes None recorded. Procedures Surgical History Date Name Laterality Status Provider Name and Address Organization Details Recorded Time Tubal Ligation completed Karli Escalera [facility] 12/08/2024 10:09:43 Imaging Results None recorded. Procedure Notes None recorded. Medical Equipment None Reported. Allergies Allergen ID Allergen Name Allergen Category Reaction Reaction Severity Criticality Documentation Date Start Date Code Code System Note Provider Name and Address Organization Details Recorded Time 47748 metronida zole hydrochlo ride medicatio n rash mild low 06/09/2023 29210 RxNorm Sobeida Trimble [facility] 4 11:36:31 Medications Name Sig Start Date Stop Date Status Note LastModified by Organization Details LastModified Time venlafaxi ne ER 37.5 mg capsule,e xtended release 24 hr take 1 capsule BY MOUTH at NOON FOR 14 DAYS THEN disconti nue active Not Available Not Available No t Available venlafaxi ne ER 75 mg capsule,e xtended release 24 hr take 1 capsule BY MOUTH EVERY DAY at NOON with 150mg DOSE FOR 225mg total DOSE active Not Available Not Available No t Available lisinopri l 20 mg-hydroc hlorothia zide 12.5 mg tablet TAKE 1 TABLET BY MOUTH EVERY DAY 07/20 completed Not Available Not Available Not Available azithromy lauren 250 mg tablet TAKE 2 TABLETS BY MOUTH TODAY, THEN TAKE 1 TABLET DAILY ON DAYS 2-5 07/20 completed Not Available Not Available Not Available ibuprofen 800 mg tablet TAKE 1 TABLET BY MOUTH THREE TIMES DAILY NEEDED 10/21 completed Not Available Not Available Not Available tizanidin e 4 mg tablet TAKE 1 TABLET BY MOUTH EVERY 8 HOURS NEEDED FOR muscle spastici ty 12/08 completed Not Available Not Available Not Available meloxicam 15 mg tablet TAKE 1 TABLET BY MOUTH EVERY DAY NEEDED FOR PAIN 07/20 completed Not Available Not Available Not Available ondansetr on HCl 4 mg tablet TAKE 1 TABLET BY MOUTH EVERY 4 HOURS NEEDED FOR NAUSEA 12/08 completed Not Available Not Available Not Available prednison e 20 mg tablet TAKE 2 TABLETS BY MOUTH EVERY DAY 12/08 completed Not Available Not Available Not Available venlafaxi ne ER 150 mg capsule,e xtended release 24 hr TAKE 2 CAPSULES BY MOUTH at NOON active Not Available Not Available No t Available amoxicill in 875 mg tablet Take 1 tablet every 12 hours by oral route for 10 days. 08/11 completed Not Available Not Available Not Available estradiol 1 mg tablet TAKE 1 TABLET BY MOUTH EVERY DAY active Not Available Not Available No t Available gabapenti n 300 mg capsule at bedtime 07/20 completed Not Available Not Available Not Available diclofena c sodium 75 mg tablet,de layed release TAKE 1 TABLET BY MOUTH TWICE DAILY 12/08 completed Not Available Not Available Not Available dextroamp hetamine- amphetami ne ER 10 mg 24hr capsule,e xtend release take 1 capsule BY MOUTH EVERY DAY IN THE MORNING 07/20 completed Not Available Not Available Not Available estradiol 0.5 mg tablet TAKE 1 TABLET BY MOUTH EVERY DAY with progeste carolina 07/20 completed Not Available Not Available Not Available methylpre dnisolone 4 mg tablets in a dose pack Take as directed on package for 6 days 12/08 completed Not Available Not Available Not Available lisinopri l 40 mg tablet Take 1 tablet every day by oral route. active Not Available Not Available No t Available ondansetr on 4 mg disintegr ating tablet 07/20 completed Not Available Not Available Not Available fluticaso ne propionat e 50 mcg/actua tion nasal spray,carlos pension USE 2 SPRAY(S) IN EACH NOSTRIL ONCE DAILY 10/21 completed Not Available Not Available Not Available naproxen 500 mg tablet TAKE 1 TABLET BY MOUTH EVERY TWELVE HOURS for 7 days THEN NEEDED. STOP FOR stomach pain 12/08 completed Not Available Not Available Not Available progester one micronize d 100 mg capsule take 1 capsule BY MOUTH AT BEDTIME WITH ESTRADIO L 10/21 completed Not Available Not Available Not Available Ventolin HFA 90 mcg/actua tion aerosol inhaler INHALE 2 PUFFS BY MOUTH EVERY 4 HOURS NEEDED FOR COUGH 07/27 completed Not Available Not Available Not Available nitrofura ntoin monohydra te/macroc rystals 100 mg capsule Take 1 capsule every 12 hours by oral route for 5 days. 07/11 completed Not Available Not Available Not Available lisinopri l-hydroch lorothiaz paige QD 07/11 completed RM/bn; 9; Recorded 10/23/20 22 11:37AM by Bessy Vega (Authori zed through Evelio Allan MD), Refill Request; Refill Quantity : 90; Tablet; Not Available Not Available Not Available Effexor XR in morning 07/11 completed 0; Recorded 12/29/19 23 12:46PM by Bessy Vega, Office Visit; Not Available Not Available Not Available aripipraz ole 2 mg tablet TAKE 1 TABLET BY MOUTH EVERY DAY at 7pm 10/21 completed Not Available Not Available Not Available hydrochlo rothiazid e 12.5 mg tablet TAKE 1 TABLET BY MOUTH EVERY DAY 07/20 completed Not Available Not Available Not Available lisdexamf etamine 30 mg capsule take 1 capsule BY MOUTH EVERY MORNING 10/21 completed Not Available Not Available Not Available tranexami c acid 650 mg tablet TAKE 2 TABLETS BY MOUTH EVERY 8 HOURS for 5 days 12/08 completed Not Available Not Available Not Available Zari 0.025 mg/24 hr transderm al patch APPLY ONE PATCH TWICE WEEKLY 10/21 completed Not Available Not Available Not Available Vitals Date Recorded Body height Body mass index (BMI) Body weight Provider Name and Address Organization Details Last Updated DateTime 12/08/2024 154.94 cm 36.3 kg/m2 54765.74 g Karli SERRANO [facility] 12/08/2024 10:06:15 Date Recorded Body height Body mass index (BMI) Body weight Body temperature Heart rate Oxygen saturation Oxygen saturation in Arterial blood by Pulse oximetry Systolic And Diastolic Provider Name and Address Organization Details Last Updated DateTime 4 154.94 cm 35.7 kg/m2 17643.9 6 g 97.1 [degF] 85 /min 98 % 98 % 130/90 mm[Hg] Jennifer Salas [facility] 4 14:25:36 Date Recorded Body height Body mass index (BMI) Body weight Oxygen saturation Oxygen saturation in Arterial blood by Pulse oximetry Heart rate Respiratory rate Body temperature Systolic And Diastolic Provider Name and Address Organization Details Last Updated DateTime 5 154.94 cm 41.4 kg/m2 80664.7 3 g 98 % 98 % 86 /min 16 /min 98.2 [degF] 130/70 mm[Hg] Karli Escalera [facility] 5 17:55:53 Date Recorded Body height Body mass index (BMI) Body weight Respiratory rate Oxygen saturation Oxygen saturation in Arterial blood by Pulse oximetry Heart rate Body temperature Systolic And Diastolic Provider Name and Address Organization Details Last Updated DateTime 5 154.94 cm 40.9 kg/m2 32839.7 5 g 18 /min 95 % 95 % 82 /min 98.1 [degF] 146/84 mm[Hg] TERRY PATEL [facility] 5 10:56:43 Date Recorded Body height Body mass index (BMI) Body weight Oxygen saturation Oxygen saturation in Arterial blood by Pulse oximetry Heart rate Body temperature Systolic And Diastolic Provider Name and Address Organization Details Last Updated DateTime 4 154.94 cm 38 kg/m2 34286.0 7 g 98 % 98 % 84 /min 98.4 [degF] 124/74 mm[Hg] Son Cr [facility] 4 14:34:01 Social History Question Answer Notes LastModified by Organizat ion Details LastModified Time Tobacco Smoking Status Never Smoker BIJAL lafleur [facility] 07/11/2023 11:16:17 What Was The Date Of Your Most Recent Tobacco Screening? 07/20/2025 [email or web address] Information not available 07/20/2025 Sex: Unknown Functional Status Question Answer Note LastModified by Organization D etails LastModified Time Do you or have you ever used any other forms of tobacco or nicotine? No Information not available 07/25/2025 What is your level of alcohol consumption? None [email or web address] Information not available 07/11/2023 Do you or have you ever used any nicotine-free cigarettes, vape, or chewing tobacco? No [email or web address] Information not available 07/25/2025 Mental Status None recorded. Family History Nothing Reported. Medical History No medical history recorded. Gynecological HistoryNo gynecological history recorded. Obstetrics History GPAL:G 0 P 0 0 0 0 Immunizations Vaccine Type Date Status Note Provider Nam e and Address Organization Details Recorded Time zoster recombinant 12/03/2022 [facility] 07/27/2024 11:36:40 zoster recombinant 02/18/2023 [facility] 07/27/2024 11:36:40 COVID-19, mRNA, LNP-S, PF, 100 mcg/0.5mL dose or 50 mcg/0.25mL dose 12/09/2021 completed Sobeida Trimble [facility] 07/27/2024 11:36:40 COVID-19, mRNA, LNP-S, PF, 100 mcg/0.5mL dose or 50 mcg/0.25mL dose 03/01/2021 completed Sobeida Trimble [facility] 07/27/2024 11:36:40 COVID-19, mRNA, LNP-S, PF, 100 mcg/0.5mL dose or 50 mcg/0.25mL dose 03/29/2021 susannah Trimble [facility] 07/27/2024 11:36:40 Tdap 05/10/2016 susannah Trimble [facility] 07/27/2024 11:36:40 Past Encounters Encounter ID Performer Location Encounter Start Date Encounter Closed Date Diagnosis/Indication Diagnosis SNOMED-CT Code Diagnosis ICD10 Code Diagnosis IMO Codes Diagnosis Note [id number] SADI LOPES [facility] ([facility]) [address] [place] [phone] 07/01/2023 14:03:17 07/01/2023 14:36:39 Dysuria 83675812 R30.0 Pain of le ft knee region 8747075810 29343 M25.562 Unable to reproduce pain on exam. March. [id number] Evelio Allan MD [facility] ([facility]) [address] [place] [phone] 07/11/2023 11:01:08 07/11/2023 12:36:15 Pain of left knee joint 7102894844 48853 M25.562 Binge eating disorder 43 2171066 F50.81 followed by [facility]. Benign ess ential hypertension 1786889 I10 Essential hypertension 50394258 I10 [id number] SADI LOPES [facility] ([facility]) [address] [place] [phone] 02/24/2024 14:12:47 02/24/2024 14:51:27 Pain of left knee joint 8103376651 73144 M25.562 Patient given home physical therapy program for knee pain. Will follow up with PCP. [id number] SADI SALVADOR [facility] ([facility]) [address] [place] [phone] 10/21/2024 14:04:28 10/21/2024 17:59:16 Viral upper respiratory tract infection 605856434 J06.9 Discussed use of otc medication s for symptom management .Push oral fluids and rest.If you develop fever, sob, or start feeling worse then return for re-evaluat ion. [id number] Won Lew DO [facility] ([facility]) [address] [place] [phone] 12/08/2024 09:58:10 12/08/2024 11:22:34 Acute bronchitis 85818232 J20.9 rapid flu a/b and covid negative today. Symptoms worsening and pt higher risk. counseled on conservati ve home treatments . will start antibiotic s. Return to office with no improvemen t or any problems. Go to ER with severe worsening or severe problems. [id number] SADI LPOES [facility] ([facility]) [address] [place] [address] 07/20/2025 17:49:25 07/20/2025 18:28:33 Acute upper respiratory infection 84115096 J06.9 2456 May use otc meds like zyrtec and fluticason e nasal spray as needed for symptoms. Return to clinic with any new or worsening symptoms. [id number] SADI LOPES [facility] ([facility]) [address] [place] [address] 07/25/2025 10:50:20 07/28/2025 15:39:24 Acute right otitis media 055189920 H66.91 [id number] Continue otc allergy meds. May use otc meds as needed for any pain or fever. Return to clinic with any new or worsening symptoms. Health Concerns Section Related Observation LastModified by Organization Detai ls LastModified Time None Recorded Concern Status LastModified by Organization Details LastModified Time None Recorded Advance Directives Directive None Recorded Payers Insurance Date Sequence Insurance Name Policy Number Policy Sanchez Covered Member ID Sanchez Member ID Guarantor Name 07/28/2025 1 JUDD BURR FROM [facility] (EPO) Esthela Wyatt [id number] Esthela Wyatt 10/21/2024 [place] [facility] Esthela Wyatt [id number] Esthela Wyatt 10/21/2024 1 [place] Esthela Wyatt [id number] Esthela Wyatt Notes Date Note Type Note Provider Name and Address Organization Details Recorded Time 02/24/2024 text/html Joint PainReport ed by PatientHPIFor quality, patient reportssharp. For severity, patient reportsdriving impairment,interferes with sleep, andinterferes with work/school. For location, patient reportspain is not radiatingandleft knee. For duration, patient reportspresent <1 month. For timing, patient reportsconstant,pain at night, andgradual. For aggravating factors, patient reportsmovement/positi oningandtwisting. For associated symptoms, patient reportsno weak limbs,no tingling, andno numbness of the legs/feet. For adls affected, patient reportsclimbing stairs.Patient has a history of chronic left knee pain. Normal xrays performed 06/2023. Patient was recently started on Meloxicam which is not providing relief.ROS as noted in the HPI BIJU BOWDEN [address], [address], [facility] 02/24/2024 14:50:36 10/21/2024 text/html Upper Respirator y SymptomsReported by PatientUpper Respiratory SymptomsFor quality, patient reportsproductive coughandcongested. For associated symptoms, patient reportsgreen sputum,diarrhea,headac he, andmalaise. For location, patient reportsheadandchest.RO S as noted in the HPI walk in: Says that she has no energy and she wants to just rest all of the time. Says that her head is very congested and that she has no appetite. Says that she has diarrhea as well. has a productive cough as well. no fevers. Says that this all started yesterday. no vomiting. has been taking nyquil for her symptoms and slept well. PCP: Rosalio MENENDEZ [address], [address], [facility] 10/22/2024 08:01:00 12/08/2024 text/html CoughReported by Patient Back PainReported by Patient DiarrheaReported by PatientROS as noted in the HPI walk in patientpatient is here today for chest congestion, cough and lower right side back pain from coughing so hard. Patient said that this started 2 days ago no fevers or chlls. no night sweats, but some body aches. no v/d, but a lot of nausea. Won Lew, [address] [place] [address], [phone], [facility], LKay. 12/08/2024 11:21:56 07/20/2025 text/html CoughReported by PatientROS as noted in the HPI walk in patientpatient is here today for runny nose, cough, fatigue and sore throat that started today. 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 Denies any fever. SADI LOPES [address] [place], [address], [facility], Jennifer. 07/20/2025 18:23:43 07/25/2025 text/html ROS as noted in the HPI walk-in; PCP Bj Santamaria Patient c/o right ear pain. She has been taking Zyrtec for URI. She is still coughing and congested. Patient states that her ear has had increasing pain since the last visit. No drainage. SADI LOPES [address] [place], [address], [facility], LCindyLPrince. 07/25/2025 11:27:55 OBGyn Episode No OBEpisode recorded.
[2025-08-30 19:57] VITALS: BP 145/83; PULSE 95; RESP 18; TEMP 36.6; O2SAT 97; BMI 40.0
[2025-08-30] MEDS: lidocaine-epi 2% 20 mL INJ INJECTION (21:19)
--- NOTE | 2025-08-30 21:20 | W.ED.WOUNDLC ---
HPI - Wound/Laceration General: Chief Complaint: Wound/Laceration Stated Complaint: Bump on Vagina Time Seen by Provider: 08/30/25 20:17 Source: patient Mode of arrival: ambulatory Limitations: no limitations History of Present Illness: Patient is a 59-year-old female who reports to the emergency department complaining of bump on my vagina. States this has been present for the past few days, it has started to bleed and is very irritating when she walks or to the touch. She states that she has been antibiotics recently as she recently had a left knee replacement, finished this a few days ago. Denies any fever, chills, nausea/vomiting, urinary symptoms, or other symptoms at this time. States that the lesion was not noticed after straining for bowel movement and that it is on the outside/labial region. States that she does have a history of ingrown hair. Vitals are stable at this time. Onset (ago): day(s) Location: genitals Associated symptoms: Denies chills, fever(s), nausea or vomiting Related Data Home Medications ?Medication ?Instructions ?Recorded ?Confirmed lisinopril 40 mg tablet 40 mg PO DAILY 10/24/24 08/26/25 Previous Rx's ?Medication ?Instructions ?Recorded left knee senior materials scientist brace #1 ea 05/01/24 estradiol 1 mg tablet 1 mg PO DAILY 90 days #90 tabs 01/12/25 Held on 08/13/25. Instructions: Resume on 08/27/25. venlafaxine 150 mg 300 mg (2 x 150 mg) PO .12 pm #180 04/27/25 capsule,extended release 24 hr caps (Effexor XR) calcium 600 mg (as 1 tab PO DAILY Bone health and 08/13/25 carbonate)-vitamin D3 10 mcg (400 healing 30 days #30 tabs unit) tablet (Calcium 600 + D(3)) oxycodone 5 mg tablet 5 mg PO Q6H PRN pain postop 7 days 08/26/25 #28 tabs amoxicillin 875 mg-potassium 1 tab PO BID 7 days #14 tabs 08/30/25 clavulanate 125 mg tablet Allergies Allergy/AdvReac Type Severity Reaction Status Date / Time metronidazole (From Flagyl) Allergy Mild hives Verified 08/30/25 20:00 Review of Systems General: Reports: 10 or more systems reviewed and unremarkable except in HPI and below Const: Denies: fever(s) or chills Card: Denies: chest pain Resp: Denies: dyspnea GI: Denies: abdominal pain, nausea, vomiting or diarrhea Musc: Denies: extremity pain or joint pain Skin/Breast: Reports: skin pain, skin tenderness and new lesions (Vagina region); Denies: rash Neuro: Denies: headache(s) PFSH ED PFSH: Medical History Thickened endometrium polypectomy 11/2024-- benign Postmenopausal bleeding (~2019) Failed to follow-up for evaluation Hypertension No pertinent past medical history neghx: dm,thyroid,dvt/pe PCP: Dr. 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 History of bilateral tubal ligation (~1999) [facility] with Dr. Roberts Family History Mother , Age 62 Hypertension Diabetes Father , Age 52 from [place] Diabetes CAD (coronary artery disease) Heart disease Denies family history of Colon cancer Ovarian cancer Prostate cancer Hyperlipidemia Breast cancer Uterine cancer Thyroid disease Stroke Social History Smoking and tobacco/nicotine status: never used tobacco/nicotine Second hand smoke exposure: No Alcohol intake: never Physical Exam Const: COMMON NORMALS: no acute distress, patient oriented x3, no limitations, healthy appearing, alert and well nourished NUTRITIONAL APPEARANCE: obese HENMT: COMMON NORMALS: normocephalic and atraumatic HEAD & SCALP: normocephalic and atraumatic Neck/C-Spine: COMMON NORMALS: full ROM, no lymphadenopathy, supple and no meningeal signs Resp: COMMON NORMALS: normal respiratory effort, No use of accessory muscles and clear to auscultation bilaterally AUSCULTATION: clear to auscultation bilaterally Cardio: COMMON NORMALS: regular rate and regular rhythm RATE: regular rate RHYTHM: regular rhythm : OTHER: To right inferior labial region there is red indurated lesion, no significant fluctuance. No active drainage or bleeding. Tender to palpation. No lesions about the vaginal introitus. Extremity: COMMON NORMALS: full ROM and capillary refill normal Neuro: COMMON NORMALS: patient oriented x3 SENSORIUM/ORIENTATION: Yes alert MENINGEAL SIGNS: Yes no meningeal signs Skin: COMMON NORMALS: no rashes or lesions noted, no wounds and turgor normal GENERAL SKIN EXAM: no rashes or lesions noted and turgor normal Procedures Abscess I/D Site: other (Vaginal) Side (if applicable): right Local Anesthetic: lidocaine 2% and with epi Amount of anesthesia used (mL): 5 Technique: incised with #11 blade Amount of fluid expressed (mL): 0 Irrigation: No Packing used?: none Course Vital Signs: Vital signs: Vital Signs Temperature 97.8 F 08/30/25 19:57 Pulse Rate 95 08/30/25 19:57 Respiratory Rate 18 08/30/25 19:57 Blood Pressure 145/83 08/30/25 19:57 Pulse Oximetry 97 08/30/25 19:57 MDM - Wound/Laceration Medical Decision Making Patient presented with lesion to vaginal region, bedside I&D was attempted but there was no purulent discharge or serosanguineous fluid to indicate that this was an abscess that is likely cellulitis will treat with Augmentin. No systemic symptoms of illness, nontoxic-appearing otherwise on exam. No radiology studies performed this visit Discharge Plan Discharge Patient Disposition: Home Clinical Impression: Vulvar cellulitis Condition: Stable Prescriptions: New amoxicillin-pot clavulanate 875-125 mg tablet 1 tab PO BID 7 Days Qty: 14 0RF No Action (DME) left knee senior materials scientist brace See Rx Instructions .Route .MEDSUPPLY Qty: 1 0RF Rx Instructions: As directed lisinopril 40 mg tablet 40 mg PO DAILY venlafaxine [Effexor XR] 150 mg capsule,extended release 24hr 300 mg PO .12 pm Qty: 180 2RF Rx Instructions: Take two capsules at noon estradiol 1 mg tablet 1 mg PO DAILY 90 Days Qty: 90 3RF oxycodone 5 mg tablet 5 mg PO Q6H PRN (Reason: pain postop) 7 Days Qty: 28 0RF calcium carbonate-vitamin D3 [Calcium 600 + D(3)] 600 mg-10 mcg (400 unit) tablet 1 tab PO DAILY 30 Days Qty: 30 0RF Discharge Orders: Discharge ED (Routine); Ordered 08/30/25 Ordered By: Karri Mon Referrals: Caroline Santamaria DO [Primary Care Provider, ATTENDING PATHOLOGIST] Patient Instructions: Patient Portal & Emi Instructions Activity Restrictions/Additional Instructions: Vulvar Cellulitis Discharge You have been diagnosed with vulvar cellulitis, a skin infection. You are being treated with amoxicillin-clavulanate (Augmentin), to be taken twice daily for 7 days. Medication Instructions: - Take Augmentin exactly as prescribed: one tablet every 12 hours (twice daily) for 7 days. - Take each dose with a meal or snack to help prevent stomach upset. - Finish the entire course, even if you start feeling better before it is done. What to Expect: - Improvement in redness, swelling, pain, or warmth should begin within 24?48 hours after starting antibiotics. - Some skin redness or swelling may persist even after the infection is treated. When to Seek Help: - If your symptoms do not improve or get worse after 2?3 days, contact your healthcare provider. - Stop the medication and call your provider immediately if you develop a rash, hives, swelling, trouble breathing, or any other signs of an allergic reaction. - If you have severe diarrhea, especially if it is watery or bloody, or lasts more than 2?3 days, contact your provider. - Seek urgent care if you develop fever, chills, confusion, or feel very unwell. General Care: - Keep the affected area clean and dry. - Avoid scratching or touching the area unnecessarily. - Rest as needed and drink plenty of fluids. Follow-Up: - Schedule a follow-up appointment or call your provider if you have any concerns or if symptoms persist after finishing the antibiotics. Important Reminders: - Do not share your medication with anyone. - Inform your provider of any other medications or allergies you have. If you have any questions about your treatment or symptoms, please contact your healthcare provider. Print Language: American Coding Level of Care Code ED [place] Monitoring Technician for Joao Gonzalez
== END 2025-08-30 21:25 | disposition home or self-care (01) ==
PROVIDERS: Emergency Provider Physician Assistant; PCP Family Medicine
DX: N76.2 Acute vulvitis (principal); I10 Essential (primary) hypertension
CPT/HCPCS: 56405; 99283; J9999

== ENCOUNTER → 2025-10-07 12:53 | Outpatient (BNVA) | payer OTHER, SELFPAY | PROVIDERS: PCP Family Medicine; Visit Provider Student in an Organized Health Care Education/Training Program | DX: Z96.652 Presence of left artificial knee joint (principal) | CPT/HCPCS: 73560; 73565 ==